=== PATIENT | female | born 1970 | race African-American/Black ===

== ENCOUNTER 2017-08-16 14:11 | Outpatient (CLI) | payer MEDICARE ==
--- NOTE | 2017-08-16 16:59 | RAD ---
UPPER GI: Date: 08/16/17 HISTORY: Bariatric surgery. Patient reports fluid in abdomen. COMPARISON: 02/22/13. CORRELATION: Abdomen MRI dated 04/30/17. Abdomen CT dated 04/29/17. EXPOSURE: 1.4 minutes. 1038.2 mGy*cm\S\2. FINDINGS: 1 VIEW ABDOMEN: Nonspecific bowel gas pattern. Surgical clips and suture chain are noted in the left and right epiga stric region. Patient was administered a small amount of thin barium. Barium opacifies a gastric remnant and empti es into the small bowel loops without delay. No leak or extravasation. Visualized thoracic esophagus have an overall normal course and caliber. Limited evaluation of the m ucosa. TECHNIQUE: A limited upper GI was performed due to the patient having previous bariatric surgery and stating th at she cannot ingest large volumes. Patient was placed in the upright position and thin barium was a dministered. Barium passed without difficulty. There were no immediate postprocedure complications. IMPRESSION: Limited upper GI. Contrast opacifies the gastric remnant. No evidence of leak or extravasation. POS: ALEXI
== END 2017-08-16 14:12 | disposition home or self-care (01) ==
LOC: RAD 14:11
DX: Z48.815 Encounter for surgical aftercare following surgery on the digestive system (principal); Z98.84 Bariatric surgery status
CPT/HCPCS: 36415; 74241; 80053; 84134; 85025

== ENCOUNTER 2017-09-05 17:03 | Emergency (ER) | payer MEDICARE ==
[~2017-09-05 17:03] MED LIST: ISOVUE-370 76%-LOCM 1 ML ONE; Iopamidol 370 76% 50 ML VIAL FS ONE
[2017-09-05 19:23] LABS: Hematocrit 47.3 % (36.0-47.0); Mean Platelet Volume 7.1 fL (7.4-10.4); Red Blood Cell (RBC) Count 6.44 mill/uL (4.20-5.40); White Blood Cell (WBC) Count 9.7 thou/uL (4.8-10.8)
[2017-09-05 19:40] LABS: Lactic Acid - Sepsis 3.7 mmol/L (0.5-2.2)
[2017-09-05 19:43] LABS: ALT (SGPT) 12 U/L (8-55); AST (SGOT) 19 U/L (5-34); Alkaline Phosphatase 83 U/L (40-150); Anion Gap 19 mmol/L (10-20); BUN (Urea Nitrogen) 10 mg/dL (7.0-18.7); Bilirubin, Total 0.6 mg/dL (0.2-1.2); Calc. Creatinine Clearance 0 mL/min (70-130); Calcium 10.2 mg/dL (7.8-10.44); Carbon Dioxide 24 mmol/L (22-29); Chloride 102 mmol/L (98-107); Estimated GFR-MDRD Greater than 90; Globulin 4.3 g/dL (2.4-3.5); Lipase 23 U/L (8-78); Magnesium 2.3 mg/dL (1.6-2.6); Protein, Total 8.7 g/dL (6.0-8.3)
[2017-09-05 19:44] LABS: #Basophils 0.1 thou/uL (0.0-0.2); #Lymphocytes 3.3 thou/uL (1.20-3.40); #Monocytes 0.6 thou/uL (0.11-0.59); #Neutrophils 5.7 thou/uL (1.40-6.50); %Basophils 1.4 % (0.0-1.0); %Eosinophils 0.1 % (0.0-10.0); %Lymphocytes 33.7 % (21.0-51.0); %Monocytes 6.3 % (0.0-10.0); Anisocytosis SLIGHT = 6-15 cells (100X) (0-5/hpf); Hypochromia SLIGHT = 6-15 cells (100X) (0-5/hpf)
[2017-09-05] MEDS ORDERED: Morphine 10 MG/ML VIAL ONE ×2 (19:44→21:45)
[2017-09-05] MEDS ORDERED: Promethazine HCl 25 MG/ML VIAL ONE ×2 (19:44→21:45)
[2017-09-05 20:31] LABS: Bilirubin Small (Negative); Blood, Urine Negative (Negative); Glucose, Urine (Dipstick) 250 mg/dL (Negative); Ketone, Urine 15 mg/dL (Negative); Nitrite Negative (Negative); Protein, Urine (Dipstick) 30 mg/dL (Neg-Trace)
[2017-09-05 20:33] LABS: Bacteria/HPF None Seen HPF (None Seen)
[2017-09-05 20:44] LABS: Hyaline Casts/LPF 0-3 HYALINE CAST LPF (0-3 Hyaline)
--- NOTE | 2017-09-05 22:15 | CT ---
CONTRAST ENHANCED CT IMAGES OF ABDOMEN AND PELVIS: 09/05/17 Comparison made to previous exam from 04/29/17. IV and oral contrast was given. Lung bases are unremarkable. No evidence of free intraperitoneal air seen. The liver is unremarkable except for what appears to b e a cyst in the dome of the right hepatic lobe. There is some intrahepatic biliary dilatation likely physiologic. The patient has had a previous cholecystectomy. The spleen is unremarkable except for a small splenic hilar likely cyst. Surgical changes seen in the stomach. The pancreas is unremarkabl e. Adrenal glands and kidneys are unremarkable. The SMA and celiac arteries are patent. Superior mesenteric vein is also patent. No evidence of periaortic lymphadenopathy seen. IMPRESSION: Unremarkable CT of abdomen and pelvis in a patient post cholecystectomy and gastric surgery. POS: ALEXI
[2017-09-06] MEDS ORDERED: Morphine 10 MG/ML VIAL ONE (00:46)
--- OUTSIDE RECORDS SUMMARY | 2017-09-06 09:04 | XMS | Clinical Summary ---
:1970 Author Organization [facility] Address [address] [place] [address] Phone Care Team Providers Name Role Phone Asked, No Primary Care Provider Unavailable Allergies Active Allergy Reactions Severity Noted Date Comments Doxycycline Hives High 05/29/2013 Latex Rash High 05/29/2013 Metoclopramide Hcl Palpitations High 05/29/2013 Sulfa (Sulfonamide Antibiotics) Hives High 05/29/2013 Ondansetron Hcl Influenza Virus Vaccines Rash Low 11/13/2013 Current Medications Prescription Sig. Disp. Refills Start Date End Date Status cyanocobalamin 1000 MCG Take 1,000 mcg by Active tablet mouth. ergocalciferol (VITAMIN Take 50,000 Units Active D2) 50,000 unit capsule by mouth. estrogens, conjugated, Take 0.625 mg by Active (PREMARIN) 0.625 MG tablet mouth. eszopiclone (LUNESTA) 1 MG Take 1 mg by Active tablet mouth. fentaNYL (DURAGESIC) 50 Place 1 patch on Active mcg/hr the skin. HYDROcodone-acetaminophen Take 1 tablet by 03/21/2017 Active (NORCO) 10-325 mg per mouth. tablet levothyroxine (SYNTHROID, Take 50 mcg by Active LEVOXYL) 50 mcg tablet mouth. multivitamin capsule Take 1 capsule by Active mouth. pantoprazole (PROTONIX) 40 Take 40 mg by Active MG EC tablet mouth. polyethylene glycol Take 17 g by Active (GLYCOLAX) 17 gram/dose mouth. powder propranolol LA (INDERAL Take 60 mg by Active LA) 60 MG 24 hr capsule mouth. TiZANidine (ZANAFLEX) 4 MG Take 4 mg by Active capsule mouth. dextroamphetamine-amphetam Take 20 mg by 07/31/2017 Active ine (ADDERALL) 20 mg mouth. tablet dicyclomine (BENTYL) 10 MG Take 10 mg by Active capsule mouth. hyoscyamine (LEVSIN) 0.125 Place 0.125 mg Active mg SL tablet under the tongue. sucralfate (CARAFATE) 1 Take 1 g by mouth. Active gram tablet predniSONE (DELTASONE) 50 Take 50 mg by 07/26/2017 Active mg tablet mouth. pantoprazole (PROTONIX) 40 Take 40 mg by 05/23/[address] for susp in mouth. packet SUMAtriptan (IMITREX) 50 Take 50 mg by Active MG tablet mouth. azithromycin (ZITHROMAX) 0 07/26/2017 Active 250 MG tablet HYDROcodone-acetaminophen TK 15 ML PO Q 3 TO 0 07/09/2017 Active (HYCET) 2.5-108.3 mg/5 mL 6 H solution hyoscyamine (LEVBID) 0.375 TK 1 T PO BID 0 07/19/2017 Active mg 12 hr tablet eszopiclone (LUNESTA) 3 mg 2 06/24/2017 Active tablet traMADol (ULTRAM) 50 mg 05/04/2017 Active tablet Active Problems Not on file Encounters Date Type Specialty Care Team Description 08/28/2017 Orders Only General Surgery Rodney Shin RN 08/01/2017 Office Visit General Surgery Peter Grace MD Left upper quadrant pain (Primary Dx);Anastomotic stenosis of gastrojejunostomy;Gastric bypass status for obesity 08/01/2017 Orders Only General Surgery Rodney Shin RN History of bariatric surgery (Primary Dx) from Last 3 Months Family History Medical History Relation Name Comments Diabetes Mother Heart disease Mother Relation Name Status Comments Mother Social History Tobacco Use Types Packs/Day Years Used Date Never Smoker Alcohol Use Drinks/Week oz/Week Comments No Sex Assigned at Date Recorded Not on file Last Filed Vital Signs Vital Sign Reading Time Taken Blood Pressure 170/77 08/01/2017 3:25 PM CDT Pulse 86 08/01/2017 3:25 PM CDT Temperature 36.8 C (98.2 F) 08/01/2017 3:25 PM CDT Respiratory Rate - - Oxygen Saturation 96% 08/01/2017 3:25 PM CDT Inhaled Oxygen Concentration - - Weight 81.6 kg (180 lb) 08/01/2017 3:25 PM CDT Height 162.6 cm (5' 4") 08/01/2017 3:25 PM CDT Body Mass Index 30.9 08/01/2017 3:25 PM CDT Plan of Treatment Health Maintenance Due Date Last Done Comments PAP SMEAR 1991 INFLUENZA VACCINE 06/11/2017 Results Not on filefrom Last 3 Months Insurance Payer Benefit Plan / Group Subscriber ID Type Phone Address MEDICARE MEDICARE PART A AND B [id number] Medicare [place], [place] BCBS BCBS CHOICE PPO/[employer]ER[employer] EMPL PPO [id number] PPO Home: [address] [phone] [place], [place] [phone]
--- OUTSIDE RECORDS SUMMARY | 2017-09-06 09:04 | XMS | Clinical Summary ---
:1970 Author Organization [facility] Address [address] [place] [address] Phone Care Team Providers Name Role Phone , Primary Care Provider Unavailable Allergies Active Allergy Reactions Severity Noted Date Comments Doxycycline Hives High 05/29/2013 Latex Rash High 05/29/2013 Metoclopramide Hcl Palpitations High 05/29/2013 Sulfa (Sulfonamide Antibiotics) Hives High 05/29/2013 Ondansetron Hcl (Pf) Anaphylaxis High 05/29/2013 Influenza Virus Vaccines Rash Low 11/13/2013 Current Medications Prescription Sig. Disp. Refills Start Date End Date Status estrogens, conjugated, Take 0.625 mg by Active (PREMARIN) 0.625 MG mouth daily. tablet TiZANidine (ZANAFLEX) Take 4 mg by mouth Active 4 MG capsule 4 (four) times daily . levothyroxine Take 50 mcg by Active (SYNTHROID, mouth every other LEVOTHROID) 50 MCG day. tablet multivitamin capsule Take 1 capsule by Active mouth daily. polyethylene glycol Take 17 g by mouth Active (GLYCOLAX) 17 daily as needed . gram/dose powder eszopiclone (LUNESTA) Take 1 mg by mouth Active 1 MG tablet every night as needed. Take immediately before bedtime. morphine 10 mg/5 mL Take by mouth Active solution every 8 (eight) hours . pantoprazole Take 40 mg by Active (PROTONIX) 40 MG mouth daily. tablet cyanocobalamin Take 1,000 mcg by Active (VITAMIN B-12) 1000 mouth daily . MCG tablet ergocalciferol Take 50,000 Units Active (VITAMIN D2) 50,000 by mouth once a unit capsule week. propranolol (INDERAL Take 60 mg by Active LA) 60 MG 24 hr mouth daily. capsule promethazine Take 25 mg by Active (PHENERGAN) 25 MG mouth every 6 tablet (six) hours as needed for Nausea. fentaNYL (DURAGESIC) Place 1 patch onto Active 50 mcg/hr patch the skin every third day. HYDROcodone-acetaminop Take 1 tablet by 30 tablet 0 03/21/2017 Active hen (NORCO 10-325) mouth every 6 10-325 mg per tablet (six) hours as needed for Pain for up to 30 doses. 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 DX Data Management Engineer Social History Tobacco Use Types Packs/Day Years Used Date Never Smoker Smokeless Tobacco: Never Used Alcohol Use Drinks/Week oz/Week Comments No 0.0 Sex Assigned at Date Recorded Not on file Last Filed Vital Signs Vital Sign Reading Time Taken Blood Pressure 93/55 03/21/2017 4:00 PM CDT Pulse 83 03/21/2017 4:00 PM CDT Temperature 35.8 C (96.4 F) 03/21/2017 4:00 PM CDT Respiratory Rate 18 03/21/2017 4:00 PM CDT Oxygen Saturation 100% 03/21/2017 4:00 PM CDT Inhaled Oxygen Concentration - - Weight 75.8 kg (167 lb) 03/20/2017 8:54 PM CDT Height 162.6 cm (5' 4") 03/20/2017 8:54 PM CDT Body Mass Index 28.67 03/20/2017 8:54 PM CDT Plan of Treatment Not on file Implants Implanted Type Area Instrumentation And Controls Technician Device Expiration Model / Identifier Date Serial / Lot Stent,Esophageal Wallflex Partially Covered Permalume [id number] - [id number] Stents-Pe [employer] 07/16/2015 [id number] / Implanted:Qty: 1 on 10/15/2014 by Flor Dickinson MD ripheral / [id number] Explanted Type Area Instrumentation And Controls Technician Device Expiration Date Model / Identifier Serial / Lot Stent,Esophageal Wallflex Fully Covered [id number] - [id number] Stents-Pe [employer] [id number] / Implanted:Qty: 1 on 08/08/2013 by Maicol Bella MD ripheral / Explanted:Qty: 1 on 11/26/2014 by Flor Dickinson MD Results Not on filefrom Last 3 Months
== END 2017-09-06 00:54 | disposition home or self-care (01) ==
LOC: ERS 17:03
DX: R11.2 Nausea with vomiting, unspecified (principal); R10.31 Right lower quadrant pain; M32.9 Systemic lupus erythematosus, unspecified; E11.9 Type 2 diabetes mellitus without complications; E78.5 Hyperlipidemia, unspecified; I10 Essential (primary) hypertension; Z79.899 Other long term (current) drug therapy
CPT/HCPCS: 36415; 74177; 80053; 81003; 81015; 83605; 83690; 83735; 84702; 85025; 93005; 96361; 96372; 96374; 96375; 96376; J2270; J2550

== ENCOUNTER 2019-06-03 14:38 | Emergency (ER) | payer MEDICARE, BC ==
[2019-06-03] MEDS ORDERED: Metoclopramide HCl 10 MG/2 ML VIAL ONE (15:10)
[2019-06-03] MEDS ORDERED: Morphine 2 MG/ML SYRINGE ONE ×2 (15:10→17:51)
--- NOTE | 2019-06-03 15:12 | RAD ---
Portable frontal chest radiograph: 06/03/2019 COMPARISON: 06/02/2011 HISTORY: Lightheaded, dizzy, chest pain FINDINGS: Lungs are clear. Heart and mediastinal contours appear within normal limits. There is a pos tsurgical anchor overlying the left humeral head IMPRESSION: No acute findings.
[2019-06-03 15:19] LABS: #Basophils 0.1 thou/uL (0.0-0.2); #Eosinphils 0.1 thou/uL (0.0-0.7); #Lymphocytes 2.8 thou/uL (1.20-3.40); #Monocytes 0.6 thou/uL (0.11-0.59); #Neutrophils 3.3 thou/uL (1.40-6.50); %Basophils 1.2 % (0.0-1.0); %Eosinophils 1.2 % (0.0-10.0); %Lymphocytes 40.5 % (21.0-51.0); %Monocytes 8.8 % (0.0-10.0); %Neutrophils 48.4 % (42.0-75.0); Mean Corpuscular HGB CONC 32.6 g/dL (32.0-36.0); Mean Corpuscular Hemoglobin 24.2 pg (27.0-31.0); Mean Corpuscular Volume 74.1 fL (78.0-98.0); Mean Platelet Volume 9.7 fL (7.4-10.4); Platelet Count 244 thou/uL (130-400); RBC Distribution Width 12.2 % (11.5-14.5); Red Blood Cell (RBC) Count 5.38 mill/uL (4.20-5.40); White Blood Cell (WBC) Count 6.9 thou/uL (4.8-10.8)
[2019-06-03 15:27] LABS: MDiff Complete? YES; Microcytosis SLIGHT = 6-15 cells (100X) (0-5/hpf); Platelet Morphology Comment Appears Adequate; Polychromasia SLIGHT = 2-3 cells (100X) (0-2/hpf)
[2019-06-03 15:34] LABS: ALT (SGPT) 34 U/L (8-55); AST (SGOT) 116 U/L (5-34); Albumin 4.4 g/dL (3.5-5.0); Alkaline Phosphatase 120 U/L (40-150); Anion Gap 15 mmol/L (10-20); BUN (Urea Nitrogen) 9 mg/dL (7.0-18.7); Bilirubin, Total 0.4 mg/dL (0.2-1.2); Calc. Creatinine Clearance 0 mL/min (70-130); Calcium 9.7 mg/dL (7.8-10.44); Carbon Dioxide 27 mmol/L (22-29); Chloride 104 mmol/L (98-107); Estimated GFR-MDRD 86; Globulin 3.2 g/dL (2.4-3.5); Glucose 107 mg/dL (70-105); Potassium 4.5 mmol/L (3.5-5.1); Protein, Total 7.6 g/dL (6.0-8.3); Sodium 141 mmol/L (136-145)
--- NOTE | 2019-06-03 18:25 | CT ---
CT ABDOMEN AND PELVIS WITH CONTRAST: 06/03/19 INDICATIONS: Abdominal pain. Technologist states lateral left hip pain. COMPARISON: CT abdomen and pelvis 09/05/17. Lung bases clear. Dilatation of intra and extrahepatic biliary ducts is seen but this is a stable finding from the prio r study. Cystic lesion in the superior liver under the dome of the diaphragm is stable. Postoperative changes involving the stomach again noted. There is evidence of gastric bypass. Mild dilatation of the pancreatic duct; however, this is a stable finding from 2017. Adrenal glands and kidneys unremarkable. Small bowel loops normal caliber. Colon unremarkable. Images through the pelvis shows a hysterectomy. Urinary bladder unremarkable. No adenopathy identifi ed. Osseous structures unremarkable. The left hip appears unremarkable. IMPRESSION: Post gastric bypass changes again noted. There is intra and extrahepatic biliary duct dilatation and dilatation of pancreatic duct. These findings are stable from the CT of 2017. POS: OFF
--- NOTE | 2019-06-03 18:29 | CT ---
CT ANGIOGRAM OF THE CHEST WITH 3D RENDERIN06/03/19 HISTORY: Chest pain, history of prior cholecystectomy and gastric bypass. FINDINGS: No CT evidence for acute pulmonary embolism. Postop changes in the stomach consistent with gastric by pass. Dilatation of the common duct and intrahepatic ducts is visualized probably related to prior ch olecystectomy. 1.8 cm liver cyst in the dome of the liver. Mild thickening of the distal esophagus, n onspecific. No pleural effusion or pericardial effusion. No mediastinal mass or adenopathy. No eviden ce for aortic aneurysm or dissection. IMPRESSION: No convincing CT evidence for acute pulmonary embolism. Postop changes in the stomach evidence for pr ior gastric bypass with some nonspecific thickening of the distal esophagus. Small cyst in the dome of the right lobe of the liver. Dilatation of the common duct and intrahepatic ducts probably related to status post cholecystectomy. POS: RRE
== END 2019-06-03 18:27 | disposition home or self-care (01) ==
LOC: ERS 14:38
DX: M79.81 Nontraumatic hematoma of soft tissue (principal); R07.89 Other chest pain; R42 Dizziness and giddiness; I48.91 Unspecified atrial fibrillation; I10 Essential (primary) hypertension
CPT/HCPCS: 36415; 71045; 71275; 74177; 80053; 84484; 85025; 93005; 96374; 96375; J2270; J2765

== ENCOUNTER 2020-01-25 07:18 | Outpatient (CLI) | payer MEDICARE, BC, MEDICAID ==
[2020-01-25 17:00] LABS: Hemoglobin 12.4 g/dL (12.0-16.0); Mean Corpuscular HGB CONC 32.5 g/dL (32.0-36.0); Mean Corpuscular Hemoglobin 24.7 pg (27.0-31.0); Mean Corpuscular Volume 76.2 fL (78.0-98.0); Platelet Count 225 thou/uL (130-400); RBC Distribution Width 12.1 % (11.5-14.5); Red Blood Cell (RBC) Count 5.04 mill/uL (4.20-5.40)
[2020-01-25 17:17] LABS: Anion Gap 11 mmol/L (10-20); BUN (Urea Nitrogen) 10 mg/dL (7.0-18.7); Calc. Creatinine Clearance 0 mL/min (70-130); Calcium 9.7 mg/dL (7.8-10.44); Carbon Dioxide 28 mmol/L (22-29); Chloride 105 mmol/L (98-107); Estimated GFR-MDRD 88; Glucose 107 mg/dL (70-105); Sodium 140 mmol/L (136-145)
== END 2020-01-25 07:19 | disposition home or self-care (01) ==
LOC: LABBT 07:18
PROVIDERS: ATTEND Dentist Oral and Maxillofacial Surgery
DX: Z01.818 Encounter for other preprocedural examination (principal); L02.91 Cutaneous abscess, unspecified; R52 Pain, unspecified
CPT/HCPCS: 80048; 85027; 93005; 93010

== ENCOUNTER 2020-02-01 06:07 | Day surgery (SDC) | payer MEDICARE, BC, MEDICAID ==
[2020-01-25 15:45] VITALS: BMI 34.3
[2020-02-01] MEDS ORDERED: Fentanyl 100 MCG/2 ML VIAL ONE ×2 (06:33→09:54)
[2020-02-01] MEDS ORDERED: Chlorhexidine Gluconate 15 ML UDCUP SSP ONE (06:44)
[2020-02-01] MEDS ORDERED: Lidocaine 1% w/Epinephrine 1:100K 20 ML VIAL ONE (06:44)
[2020-02-01] MEDS ORDERED: Dexamethasone 4 mg/ml Vial ONE (06:55)
[2020-02-01] MEDS ORDERED: Clindamycin/D5W 900 mg/50 ml Premix Bag ONE (06:55)
[2020-02-01] MEDS ORDERED: Scopolamine 1.5 mg/72 hour Patch ONE (07:11)
[2020-02-01] MEDS ORDERED: AFRIN NASAL MIST 15 ML BOT ONE (07:27)
[2020-02-01] MEDS ORDERED: SUGAMMADEX SODIUM 200 MG/2 ML VIAL ONE (08:13)
[2020-02-01] MEDS ORDERED: SUGAMMADEX SODIUM 500 MG/5 ML VIAL ONE (08:13)
[2020-02-01] MEDS ORDERED: Midazolam HCl 2 mg/2 ml Vial ONE (08:13)
[2020-02-01] MEDS ORDERED: Promethazine HCl 25 MG/ML VIAL ONE (09:42)
[2020-02-01] MEDS ORDERED: PROPOFOL 200 MG/20 ML VIAL ONE (09:54)
[2020-02-01] MEDS ORDERED: PHENYLEPHRINE-NS 100 MCG/ML 10 ML SYRINGE ONE (09:54)
[2020-02-01] MEDS ORDERED: Glycopyrrolate 0.2 MG/ML 5 ML SYRINGE ONE (09:54)
[2020-02-01] MEDS ORDERED: Ketorolac Tromethamine 30 MG/ML VIAL ONE (09:54)
[2020-02-01] MEDS ORDERED: Succinylcholine Chloride 20 MG/ML 10 ml SYRINGE FS ONE (09:54)
[2020-02-01] MEDS ORDERED: Rocuronium Bromide 10 MG/ML (10ML VIAL) ONE (09:54)
[2020-02-01] MEDS ORDERED: Lidocaine 1% PF 5 ML VIAL ONE (09:54)
[2020-02-01] MEDS ORDERED: Hydrocodone-Acetamin 15 ML UDCUP ONE (11:00)
--- NOTE | 2020-02-01 14:18 | OP ---
DATE OF PROCEDURE: 02/01/2020 PREOPERATIVE DIAGNOSES: Decayed teeth, dental pain, and abscess. POSTOPERATIVE DIAGNOSES: Decayed teeth, dental pain, and abscess. PROCEDURES PERFORMED: Surgical removal of teeth 7, 13, 14, 20, 21, 22, 27, 28, 29, 30, 31 and alveoloplasty of lower right and lower left quadrants. tOOTH 31 WAS ADDED TO PLAN IT WAS NOTED TO BE GROSSLY DECAYED AND NON RESTORABLE COMPLICATIONS: None. SPECIMENS: None. DRAINS: None. ANESTHESIA: General endotracheal anesthesia through nasal tube. BRIEF PATIENT HISTORY AND PROCEDURE IN DETAIL: This is a 49-year-old female with complex past medical history. She was bridged with Lovenox and held her Eliquis prior to surgery per her intermediate frame tender, Dr. Murillo. The patient does have history of multiple blood clots. The patient was prepped and draped in sterile fashion. Throat pack was placed utilizing a [employer] sponge. Local anesthetic was infiltrated in bilateral inferior alveolar nerve block with 1% lidocaine 1:100,000 epinephrine. Tooth #7 forceps was used to attempted extraction of the tooth; however, crown fractured off. Full-thickness mucoperiosteal flap was made with a periosteal elevator, buccal ostectomy with drill, elevator removal of the root. Also please note, a bite block was used during the entire procedure. ALL_ teeth were attempted extraction; however, crowns broke off. Full-thickness mucoperiosteal flap, buccal ostectomy drill, elevator, forceps, curette, normal saline, and Surgicel. Please note, Surgicel was placed in all sockets. Primary closure of 7, 13, and 14 were done with 4-0 chromic. Procedure was then taken to the mandible. Full-thickness mucoperiosteal flap to the buccal. All crowns fractured, elevator removal of teeth after some minor buccal ostectomy. Sockets curetted, packed with Surgicel, after irrigation with normal saline. Primary closure with 4-0 chromic. Throat pack was removed at termination of the procedure. The patient was hemostatic. The patient has pain medicine at home. She has fentanyl, Ultram, and Grant per her primary care doctor. The patient is to follow up in my clinic in one week __FROM TODAY 30 minutes at a time for the next couple hours as needed for oozing. We will monitor the patient in postop recovery unit prior to discharge. Job ID: [id number] MTDD
== END 2020-02-01 12:14 | disposition home or self-care (01) ==
LOC: SDC 06:07
PROVIDERS: ATTEND Dentist Oral and Maxillofacial Surgery
PROC: 0CDXXZ1 Extraction of Lower Tooth, Multiple, External Approach (ICD-10-PCS; principal; 2020-02-01)
PROC: 0CDWXZ1 Extraction of Upper Tooth, Multiple, External Approach (ICD-10-PCS; 2020-02-01)
PROC: 0NQV0ZZ Repair Left Mandible, Open Approach (ICD-10-PCS; 2020-02-01)
PROC: 0NQT0ZZ Repair Right Mandible, Open Approach (ICD-10-PCS; 2020-02-01)
DX: K02.9 Dental caries, unspecified (principal); K04.7 Periapical abscess without sinus; G89.29 Other chronic pain; K21.9 Gastro-esophageal reflux disease without esophagitis; I48.91 Unspecified atrial fibrillation; Z79.01 Long term (current) use of anticoagulants; Z79.899 Other long term (current) drug therapy; Z88.1 Allergy status to other antibiotic agents; Z88.2 Allergy status to sulfonamides; Z88.7 Allergy status to serum and vaccine; Z88.8 Allergy status to other drugs, medicaments and biological substances; Z91.040 Latex allergy status; Z98.84 Bariatric surgery status
CPT/HCPCS: J1100; J1885; J2001; J2250; J2550; J2704; J3010; J3490

== ENCOUNTER 2020-04-18 10:32 | Outpatient (CLI) | payer BC, MEDICARE, MEDICAID, OTHER ==
[2020-04-18 18:12] LABS: #Basophils 0.1 thou/uL (0.0-0.2); #Eosinphils 0.1 thou/uL (0.0-0.7); #Lymphocytes 3.1 thou/uL (1.20-3.40); #Monocytes 0.6 thou/uL (0.11-0.59); #Neutrophils 4.7 thou/uL (1.40-6.50); %Basophils 1.3 % (0.0-1.0); %Eosinophils 1.2 % (0.0-10.0); %Lymphocytes 36.2 % (21.0-51.0); %Monocytes 6.7 % (0.0-10.0); %Neutrophils 54.6 % (42.0-75.0); Hemoglobin 12.9 g/dL (12.0-16.0); Mean Corpuscular HGB CONC 32.9 g/dL (32.0-36.0); Mean Corpuscular Volume 72.8 fL (78.0-98.0); Mean Platelet Volume 11.2 fL (7.4-10.4); Platelet Count 240 thou/uL (130-400); RBC Distribution Width 13.1 % (11.5-14.5); Red Blood Cell (RBC) Count 5.37 mill/uL (4.20-5.40); White Blood Cell (WBC) Count 8.7 thou/uL (4.8-10.8)
[2020-04-18 18:30] LABS: Hypochromia SLIGHT = 6-15 cells (100X) (0-5/hpf); Large Platelets SLIGHT; MDiff Complete? YES; Microcytosis SLIGHT = 6-15 cells (100X) (0-5/hpf); Platelet Morphology Comment Appears Adequate; Polychromasia SLIGHT = 2-3 cells (100X) (0-2/hpf); Target Cells SLIGHT = 2-5 cells (100X) (0-1/hpf)
[2020-04-18 18:37] LABS: ALT (SGPT) 14 U/L (8-55); AST (SGOT) 18 U/L (5-34); Albumin 4.3 g/dL (3.5-5.0); Alkaline Phosphatase 110 U/L (40-110); Anion Gap 14 mmol/L (10-20); BUN (Urea Nitrogen) 10 mg/dL (7.0-18.7); Bilirubin, Total 0.3 mg/dL (0.2-1.2); Calc. Creatinine Clearance 0 mL/min (70-130); Calcium 9.7 mg/dL (7.8-10.44); Carbon Dioxide 30 mmol/L (22-29); Chloride 102 mmol/L (98-107); Estimated GFR-MDRD 89; Globulin 3.5 g/dL (2.4-3.5); Glucose 106 mg/dL (70-105); Potassium 4.9 mmol/L (3.5-5.1); Protein, Total 7.8 g/dL (6.0-8.3); Sodium 141 mmol/L (136-145)
[2020-04-19 13:58] LABS: SARS-CoV-2 MS2 Positive; SARS-CoV-2 N Gene Negative; SARS-CoV-2 S Gene Negative; SARS-CoV-2 orf1ab Negative
== END 2020-04-18 10:33 | disposition home or self-care (01) ==
LOC: LABBT 10:32
PROVIDERS: ATTEND Internal Medicine Cardiovascular Disease
DX: Z01.812 Encounter for preprocedural laboratory examination (principal); Z11.59 Encounter for screening for other viral diseases
CPT/HCPCS: 80053; 85025; 87635; U0003

== ENCOUNTER 2020-04-20 10:26 | Observation (INO) | payer BC, MEDICARE, MEDICAID ==
[~2020-04-20 10:26] MED LIST changes: -ISOVUE-370 76%-LOCM 1 ML ONE; +Iopamidol 370 76% 100 ML VIAL ONE; -Iopamidol 370 76% 50 ML VIAL FS ONE
[2020-04-20] MEDS ORDERED: Heparin 10,000 UNITS/1 ML VIAL ONE (11:32)
[2020-04-20] MEDS ORDERED: Verapamil 5 MG/2 ML VIAL ONE (11:32)
[2020-04-20] MEDS ORDERED: Nitroglycerin 100MG/250ML BOT 250 ML ONE (11:32)
[2020-04-20] MEDS ORDERED: Fentanyl 100 MCG/2 ML VIAL ONE (12:09)
[2020-04-20] MEDS ORDERED: Midazolam HCl 2 mg/2 ml Vial ONE (12:09)
[2020-04-20] MEDS ORDERED: Nitroglycerin 4.9 GM Bottle ONE (12:40)
[2020-04-20] MEDS ORDERED: Acetaminophen/Codeine 30-300mg Tablet ONE ×2 (13:19→17:33)
[2020-04-20] MEDS ORDERED: Iopamidol-370 76% 500 ML 1 ML ONE (14:20)
[2020-04-20] MEDS ORDERED: Loratadine 10 MG TAB PO PRN (14:27)
[2020-04-20] MEDS ORDERED: Naproxen 500 MG TAB PO PRN (14:28)
[2020-04-20] MEDS ORDERED: hydrALAZINE 20 MG/ML VIAL ONE (14:28)
[2020-04-20] MEDS ORDERED: Sucralfate 1 GM/10 ML UDCUP PO PRN (14:33)
[2020-04-20] MEDS ORDERED: diphenhydrAMINE 25 MG CAP PO PRN (15:03)
[2020-04-20] MEDS ORDERED: HYDROcodone/Acetaminophen 10/325 mg Tablet PO PRN (15:07)
[2020-04-20] MEDS ORDERED: cloNIDine 0.1 MG TAB ONE (15:09)
[2020-04-20] MEDS ORDERED: Lorazepam 2 MG/ML VIAL ONE (15:42)
--- NOTE | 2020-04-20 16:47 | CT ---
CT arteriogram chest with IV contrast and 3-D imaging HISTORY: Chest pain. Dyspnea. COMPARISON: 06/03/2019. FINDINGS: There is good contrast opacification of the pulmonary arteries and thoracic aorta with norm al branching of the great vessels at the aortic arch. Motion artifact limits evaluation of the peripheral arteries of the lower lobes. No pleural fluid, lobar consolidation, pneumothorax, or mediastinal adenopathy evident. Postoperative changes of the stomach and the gallbladder fossa again demonstrated. Lobular cyst in th e dome of the liver is stable. IMPRESSION : No acute abnormalities are demonstrated.
[2020-04-20] MEDS: Gabapentin 300 MG CAP PO SCH ×2 (19:16→19:39)
[2020-04-20] MEDS: tiZANidine HCl 4 MG TAB PO SCH ×3 (19:17→21:43)
[2020-04-20] MEDS: Metoprolol Tartrate 50 MG TAB PO SCH (19:39)
[2020-04-20] MEDS: traMADol HCl 50 MG TAB PO PRN (19:40)
[2020-04-20] MEDS ORDERED: Zolpidem Tartrate 5 MG TAB PO SCH (21:00)
[2020-04-21 00:12] VITALS: BMI 34.2
[2020-04-21] MEDS ORDERED: Levothyroxine Sodium 25 MCG TAB PO SCH (06:00)
[2020-04-21] MEDS: Gabapentin 300 MG CAP PO SCH (08:19)
[2020-04-21] MEDS: traMADol HCl 50 MG TAB PO PRN (08:19)
[2020-04-21] MEDS: tiZANidine HCl 4 MG TAB PO SCH (08:19)
[2020-04-21] MEDS: Metoprolol Tartrate 50 MG TAB PO SCH (08:19)
[2020-04-21] MEDS ORDERED: Multivitamin W/ Minerals 1 TAB PO SCH (09:00)
[2020-04-21] MEDS ORDERED: Aspirin 81 mg Enteric Coated Tablet PO SCH (09:00)
[2020-04-21] MEDS ORDERED: Apixaban 5 MG TAB PO SCH (09:00)
[2020-04-21] MEDS ORDERED: Sodium Chloride 0.9% 500 ML IV SCH (11:45)
[2020-04-21 12:04] VITALS: TEMP 98
[2020-04-21 13:41] VITALS: BP 105/65
--- NOTE | 2020-04-21 14:00 | EKG ---
Test Reason : TIMED Blood Pressure : / mmHG Vent. Rate : 090 BPM Atrial Rate : 090 BPM P-R Int : 152 ms QRS Dur : 078 ms QT Int : 398 ms P-R-T Axes : 055 032 060 degrees QTc Int : 486 ms Normal sinus rhythm Prolonged QT Abnormal ECG Confirmed by SANKET CHI ([id number]) on 04/21/2020 2:00:00 PM Referred By: TRACY Confirmed By:SANKET CHI
[2020-05-04] MEDS ORDERED: Cyanocobalamin 1000 MCG/ML VIAL IM SCH (09:00)
== END 2020-04-21 14:15 | disposition home or self-care (01) ==
LOC: CCL 10:26 → 2NO 17:19
PROVIDERS: ADMIT Internal Medicine Cardiovascular Disease; ATTEND Internal Medicine Cardiovascular Disease
PROC: 4A023N8 Measurement of Cardiac Sampling and Pressure, Bilateral, Percutaneous Approach (ICD-10-PCS; principal; 2020-04-21)
PROC: B2011ZZ Plain Radiography of Multiple Coronary Arteries using Low Osmolar Contrast (ICD-10-PCS; 2020-04-21)
DX: R07.9 Chest pain, unspecified (principal); E11.9 Type 2 diabetes mellitus without complications; I82.401 Acute embolism and thrombosis of unspecified deep veins of right lower extremity; L93.0 Discoid lupus erythematosus; I10 Essential (primary) hypertension; E78.5 Hyperlipidemia, unspecified; K86.1 Other chronic pancreatitis; E03.9 Hypothyroidism, unspecified; Z79.01 Long term (current) use of anticoagulants; Z79.899 Other long term (current) drug therapy; Z88.2 Allergy status to sulfonamides; Z88.1 Allergy status to other antibiotic agents; Z88.7 Allergy status to serum and vaccine; Z88.8 Allergy status to other drugs, medicaments and biological substances; Z91.040 Latex allergy status
CPT/HCPCS: 36416; 71275; 76942; 93005; 93010; 93454; 99152; 99153; G0378; J0360; J1644; J2060; J2250; J3010; Q0163; Q9967

== ENCOUNTER 2020-05-25 13:19 | Outpatient (CLI) | payer BC, MEDICARE, MEDICAID, OTHER ==
[2020-05-26 13:28] LABS: SARS-CoV-2 MS2 Positive; SARS-CoV-2 N Gene Negative; SARS-CoV-2 S Gene Negative; SARS-CoV-2 orf1ab Negative
== END 2020-05-25 13:20 | disposition home or self-care (01) ==
LOC: LABSCS 13:19
PROVIDERS: ATTEND Physical Medicine & Rehabilitation
DX: Z01.812 Encounter for preprocedural laboratory examination (principal); Z11.59 Encounter for screening for other viral diseases; M54.5 Low back pain
CPT/HCPCS: 87635; U0003

== ENCOUNTER → 2020-06-16 | Outpatient (CLI) | payer BC, MEDICARE, MEDICAID, OTHER ==
[2020-06-17 14:23] LABS: SARS-CoV-2 MS2 Positive; SARS-CoV-2 N Gene Negative; SARS-CoV-2 S Gene Negative; SARS-CoV-2 by NAA Not Detected (NotDetected); SARS-CoV-2 orf1ab Negative
== END ==
LOC: LABBT 08:00
PROVIDERS: ATTEND Physical Medicine & Rehabilitation
DX: Z20.828 Contact with and (suspected) exposure to other viral communicable diseases (principal)
CPT/HCPCS: 87635; U0003

== ENCOUNTER 2020-08-07 01:55 | Emergency (ER) | payer BC, MEDICARE, MEDICAID ==
[2020-08-07] MEDS ORDERED: Metoclopramide HCl 10 MG/2 ML VIAL ONE (02:29)
[2020-08-07] MEDS ORDERED: Morphine 4 MG/ML VIAL ONE (02:29)
[2020-08-07] MEDS ORDERED: diphenhydrAMINE 50 MG/ML VIAL ONE ×2 (02:31→02:36)
[2020-08-07 02:57] LABS: Hemoglobin 12.4 g/dL (12.0-16.0); Mean Corpuscular HGB CONC 32.4 g/dL (32.0-36.0); Mean Corpuscular Hemoglobin 23.3 pg (27.0-31.0); Mean Platelet Volume 11.1 fL (7.4-10.4); Platelet Count 247 thou/uL (130-400); RBC Distribution Width 15.2 % (11.5-14.5); Red Blood Cell (RBC) Count 5.32 mill/uL (4.20-5.40); White Blood Cell (WBC) Count 9.4 thou/uL (4.8-10.8)
[2020-08-07 03:06] LABS: ALT (SGPT) 18 U/L (8-55); AST (SGOT) 17 U/L (5-34); Albumin 4.3 g/dL (3.5-5.0); Alkaline Phosphatase 100 U/L (40-110); Anion Gap 14 mmol/L (10-20); BUN (Urea Nitrogen) 9 mg/dL (7.0-18.7); Bilirubin, Total 0.4 mg/dL (0.2-1.2); Calc. Creatinine Clearance 0 mL/min (70-130); Calcium 9.5 mg/dL (7.8-10.44); Carbon Dioxide 26 mmol/L (22-29); Chloride 101 mmol/L (98-107); Estimated GFR-MDRD Greater than 90; Globulin 3.6 g/dL (2.4-3.5); Glucose 128 mg/dL (70-105); Lipase 24 U/L (8-78); Protein, Total 7.9 g/dL (6.0-8.3); Sodium 137 mmol/L (136-145)
[2020-08-07 03:17] LABS: #Basophils 0.1 thou/uL (0.0-0.2); #Lymphocytes 2.3 thou/uL (1.20-3.40); #Monocytes 0.5 thou/uL (0.11-0.59); #Neutrophils 6.5 thou/uL (1.40-6.50); %Basophils 0.7 % (0.0-1.0); %Eosinophils 0.4 % (0.0-10.0); %Lymphocytes 24.8 % (21.0-51.0); %Neutrophils 69.1 % (42.0-75.0); RBC Morphology Normal
[2020-08-07 04:07] LABS: Bacteria/HPF None Seen HPF (None Seen); Bilirubin Negative (Negative); Blood, Urine Negative (Negative); Clarity Clear (Clear); Glucose, Urine (Dipstick) Normal (Negative); Ketone, Urine Negative (Negative); Leukocyte 250 Leu/uL (Negative); Nitrite Negative (Negative); Protein, Urine (Dipstick) Negative (Neg-Trace); RBC/HPF 0-3 HPF (0-3); Squamous Epithelial 0-3 HPF (0-3); Urobilinogen Normal mg/dL (Less than 2)
[2020-08-07 04:10] LABS: Specific Gravity, Urine 1.047 (1.002-1.036)
--- NOTE | 2020-08-07 08:08 | CT ---
PRELIMINARY REPORT/[facility]/AFTER HOURS PROCEDURE CT ABDOMEN AND PELVIS WITH INTRAVENOUS CONTRAST: CLINICAL HISTORY: Reports abdominal pain, decreased appetite and nausea x2 weeks. TECHNIQUE: Axial computed tomography images of the abdomen and pelvis with intravenous contrast. CONTRAST: With Isovue 370 100 mL. COMPARISON: None provided. FINDINGS: LUNG BASES: Trace bilateral pleural effusions with associated passive atelectasis. LIVER: There is a circumscribed nonenhancing hypodense lesion at the right hepatic dome that measures 1.8 x 2.4 x 2.2 cm, likely representing a hepatic cyst. GALLBLADDER AND BILE DUCTS: The gallbladder surgically absent with intrahepatic and extra hepatic harvey iary ductal dilatation with the common bile duct measuring approximately 1.1 cm in diameter. No defi nitive intraluminal filling defects are appreciated. PANCREAS: Mild prominence of the pancreatic duct. No definitive pancreatic lesion is present. SPLEEN: Unremarkable. ADRENAL GLANDS: Unremarkable. KIDNEYS, URETERS, AND BLADDER: Unremarkable. No hydronephrosis or nephrolithiasis. No ureteral or corey dder calculi. STOMACH AND BOWEL: Status post antecolic gastric Anil-en-Y with the gastrojejunal and jejunojejunal a nastomoses unremarkable. However, the wall of the excluded stomach is thickened with submucosal kalyani a and mucosal hyperenhancement. APPENDIX: Not definitively visualized, however, no additional findings to suggest appendicitis. PERITONEUM: No free fluid. No free air. LYMPH NODES: No lymphadenopathy. REPRODUCTIVE: The uterus is surgically absent. VASCULATURE: No aortic aneurysm. BONES: No fracture or suspicious osseous abnormality. ABDOMINAL WALL AND SOFT TISSUES: Injection granulomata are appreciated within the soft tissues of the anterior abdominal wall. IMPRESSION: 1. Gastric wall thickening, submucosal edema, and mucosal hyperenhancement of the excluded stomach s tatus post antecolic gastric Anil-en-Y. Differential considerations include gastritis versus ulcerative disease. 2. Status post cholecystectomy with both intrahepatic and extra hepatic biliary ductal dilatation wh ich are somewhat out of proportion. No definitive intraluminal filling defects are identified. Chol angitis may have a similar appearance, albeit less likely. Consider nonemergent MR imaging to evalua te for possible stricture or pancreatic lesion given the presence of mild pancreatic ductal prominenc e. 3. Additional findings as described above. ELECTRONICALLY SIGNED BY: Biju Patrick MD Aug 07, 2020 3:33:51 AM CDT This report is intended for review by the ordering physician only, in accordance of law. If you recei ve this report in error, please call [facility] at [phone]. FINAL REPORT EMERGENT AFTER HOURS CT ABDOMEN AND PELVIS WITH CONTRAST: COMPARISON: 06/03/2019 09/05/2017 FINDINGS/IMPRESSION: I agree with the findings given in the preliminary report per the [facility] physician; however , these findings are stable compared to the examination from 2019 and secondary to postoperative Anil -en-Y bypass. There is stable enlargement of the biliary tree, which may be a reservoir from prior ch olecystectomy. No definite acute process is identified. CODE QA POS: EAA
[2020-08-07] MEDS ORDERED: Iopamidol-370 76% 500 ML 1 ML ONE (16:15)
== END 2020-08-07 04:38 | disposition home or self-care (01) ==
LOC: ERS 01:55
DX: K29.70 Gastritis, unspecified, without bleeding (principal); I48.91 Unspecified atrial fibrillation; M32.9 Systemic lupus erythematosus, unspecified; I10 Essential (primary) hypertension; E11.9 Type 2 diabetes mellitus without complications; F41.9 Anxiety disorder, unspecified; F32.9 Major depressive disorder, single episode, unspecified
CPT/HCPCS: 74177; 80053; 81003; 81015; 83690; 85025; 96365; 96366; 96375; J1200; J2270; J2765; Q9967

== ENCOUNTER 2020-08-10 12:58 | Inpatient (IN) | payer BC, MEDICARE, MEDICAID ==
[2020-08-10 15:11] VITALS: BMI 35.2
[2020-08-10] MEDS ORDERED: hydrALAZINE 20 MG/ML VIAL SLOW IVP PRN (15:25)
[2020-08-10] MEDS ORDERED: Labetalol HCl 100 MG/20 ML VIAL SLOW IVP PRN (15:25)
[2020-08-10] MEDS ORDERED: Morphine 4 MG/ML VIAL ONE (15:29)
[2020-08-10] MEDS ORDERED: Dextrose 5 % And 0.9 % NaCl 1,000 ML IV SCH (15:30)
[2020-08-10] MEDS: Morphine 4 MG/ML VIAL SLOW IVP PRN ×2 (15:38→23:51)
--- NOTE | 2020-08-10 19:56 | HP ---
PRIMARY CARE PHYSICIAN: Dr. Charles. CHIEF COMPLAINT: Abdominal pain and "I can't keep anything down." HISTORY OF PRESENT ILLNESS: Ms. Potter is a pleasant 50-year-old female, who has a history of systemic lupus as well as atrial fibrillation. She has had a previous gastric bypass back in 2004 and then had to have a revision in 2009. She says after that, she has not been the same since. She has periodic abdominal pain as well as nausea and vomiting and then she says about 2 weeks ago, "they just took off." She says that she has been having a sharp abdominal pain, which has been constant. It goes straight through to her back and up to her left side. She says that in certain positions, it gets worse and then she cannot keep anything down. She denies any fevers or chills. No adore diarrhea, but has had loose stools off and on. Her last bowel movement was a couple of days ago and she says that it was dark and black in color. She says that she came to the ER on Saturday and Saturday and says that she does not feel that she was treated right and was sent home. Then she went to the [facility] ER, where she says they "listen to her" and then did a CT scan of the abdomen, did not see any significant change. Lab work did not reveal any significant abnormalities and she is being sent here for further treatment. When I see the patient, she was basically intermittently writhing in pain despite having a fentanyl patch on and is having some difficulty giving me most of the history. She was not able to keep anything down and she has not been able to take any of her medications for the past 2 days. REVIEW OF SYSTEMS: All systems were reviewed and are negative except for that mentioned in the history of present illness. PAST MEDICAL HISTORY: Significant for systemic lupus erythematosus, atrial fibrillation, and fibromyalgia. PAST SURGICAL HISTORY: She has had a , cholecystectomy, hysterectomy, gastric bypass in 2004, as well as a revision in 2009, and she has had multiple surgeries since then related to the bypass and kidney stones removed. ALLERGIES: TO DOXYCYCLINE, SULFA, LATEX, AND ZOFRAN. SOCIAL HISTORY: She is , has 4 children. She does not work outside the home. She is a nonsmoker and nondrinker. Denies any drug use. FAMILY HISTORY: Significant for a mother, who had diabetes, hypertension, and blood clots; and cancer and diabetes runs in the family. CURRENT MEDICATIONS: Include, 1. Tizanidine 4 mg p.o. daily. 2. Protonix 40 mg p.o. daily. 3. [place] 10/325 as needed. 4. Gabapentin 300 mg p.o. t.i.d. 5. Eliquis 5 mg p.o. b.i.d. 6. Embeda 60/2.4 b.i.d. 7. As well as fentanyl 25 mcg patch. PHYSICAL EXAMINATION: GENERAL: She is alert and oriented. She appears to be in some distress due to abdominal pain. She is well developed and well nourished, morbidly obese. VITAL SIGNS: Blood pressure was 137/97, heart rate 100, respiratory rate is 16, and temperature is 98.6. HEENT: Pupils are equal, round, and reactive. Extraocular muscles are intact. Her sclerae are anicteric. Throat, no erythema, no exudates. NECK: No adenopathy. No bruits. LUNGS: Clear to auscultation. There is no wheezing, no rales, no rhonchi. CARDIOVASCULAR: She has a normal S1, S2. There is no S3 or S4. No murmurs, clicks, or rubs. ABDOMEN: Soft. She has some diffuse abdominal tenderness, localized primarily in the epigastric region. There is no rebound, no guarding. No organomegaly. EXTREMITIES: There is no clubbing or cyanosis. No edema. No calf tenderness. No joint effusions. NEUROLOGIC: The exam is grossly nonfocal. SKIN AND INTEGUMENT: No skin changes. No rash. LABORATORY DATA: Her lab results were reviewed from the outside facility and the white blood cell count was 14, hemoglobin is 12.8, hematocrit 40.0, and platelet count is 211. Sodium 139, potassium 3.7, chloride is 101, CO2 is 24, BUN of 18, creatinine 0.7, glucose is 120. Liver function tests are negative. Lipase was 29. She had a CT scan of the abdomen and pelvis, in which it demonstrated post cholecystectomy changes and postsurgical changes of the stomach. Otherwise, no acute abnormalities were noted. ASSESSMENT: 1. This is a pleasant 50-year-old female, who is being admitted due to severe intractable abdominal pain in the setting of having a gastric bypass surgery. CT scan of the abdomen did not show any significant change and her lab work was essentially normal. CT scan, however, cannot rule out ulcer disease such as peptic ulcer disease or an anastomotic ulcer. So therefore, we will go ahead and place her in observation and get a Gastroenterology consult. In the meantime, she will be placed on IV fluids, IV antiemetics as well as IV pain medicine in addition to her Duragesic patch. Monitor her electrolytes. 2. History of atrial fibrillation. Her heart rate is normal at this time. We will continue to monitor. 3. History of blood clots and atrial fibrillation. We will put her on Lovenox since she is unable to keep any medications down and further treatment will depend on the GI evaluation. Job ID: [id number]
[2020-08-10] MEDS: Dextrose 5 % And 0.9 % NaCl 1,000 ML IV SCH (20:50)
[2020-08-10] MEDS: Enoxaparin Sodium 100 MG/ML SYRINGE SC SCH (20:50)
[2020-08-10] MEDS: Pantoprazole 40 MG VIAL IVP SCH (20:51)
--- NOTE | 2020-08-10 21:27 | CON ---
DATE OF CONSULTATION: 08/10/2020 REASON FOR CONSULTATION: Nausea, vomiting, intractable abdominal pain, and constipation. CONSULTING PROVIDER: Chris Henry MD HISTORY OF PRESENT ILLNESS: The patient is a 50-year-old female with past medical history of fibromyalgia, hypertension, GERD, atrial fibrillation on anticoagulation, chronic lower back pain, anxiety, hypothyroidism, obesity status post gastric bypass with three revisions due to increased abdominal pain, diabetes, and pancreatitis, presenting with complaints of abdominal pain, nausea, and vomiting. Per chart review, the patient has had chronic abdominal pain that has been present for at least the last 3 to 4 years, characterized as increased midepigastric/left upper quadrant abdominal pain. She states that she had been having this chronic abdominal pain up until two weeks ago when this pain actually increased in terms of severity. Currently, she describes the pain located at the midepigastric/left upper quadrant characterized as a sharp/stabbing type sensation, it is radiating to her mid back and reaching a severity of 10/10 (currently 8/10). The pain is worse with eating/drinking (even drinking water), increased physical activity, twisting movements, having a bowel movement, and not having a bowel movement, better only with the administration of morphine thus far. With this increased abdominal pain, it prompted her to seek healthcare assistance at the [facility] ER approximately 3 days ago, where she was evaluated and noted to have no abnormalities on labs and imaging and ultimately discharged to home. With this worsening abdominal pain and along with nausea vomiting, it prompted her to go to the [facility], where she was evaluated with labs and CT scan earlier today and ultimately admitted to the hospital as a direct admit from the urgent care center given no response to management as in that particular setting. On further evaluation of the patient, she states that she has been having 1 to 2 solid/semi-solid bowel movements per week ([place] 5) that would require intermittent straining and pressure to the abdomen in order to facilitate defecation. With the onset of this worsened abdominal pain, it also increased nausea and vomiting to where the patient has been having approximately 10+ bouts of emesis per day over the last week. Initially, the vomitus appeared more bilious/clear in coloration but over the last few days, she states that she has been "tasting blood" and throwing "black stuff up" she denies any grossly bloody episodes of emesis. Otherwise, she denies any fevers, chills, melena, hematochezia, dysphagia, constipation, or weight loss. On review of the patient's chart, she has had multiple hospitalizations for very similar pains in the past with one of the more recent visits in 2018 at the [facility]. She was subsequently treated conservatively with only pain management and ultimately discharged home. She did have an EGD performed in 2017 that showed "ulcers." She also had a repeat upper endoscopy in [address] Berg at the [facility] with a chronic ulceration seen at the gastrojejunostomy as well as clips that he removed as possible source of the ulcerations. The ulceration seen at the gastrojejunal anastomosis was deemed to be chronic in nature and had been seen on prior upper endoscopy. REVIEW OF SYSTEMS: A 10-category review of systems was obtained with all responses negative except for the pertinent positives as listed in HPI. PAST MEDICAL HISTORY: As per HPI. PAST SURGICAL HISTORY: Anil-en-Y gastric bypass status post three revisions, cholecystectomy, hemorrhoidectomy, appendectomy, , hysterectomy, and rotator cuff surgery. SOCIAL HISTORY: Denies any tobacco, alcohol, or illicit drug use. FAMILY HISTORY: Denies any GI malignancies. OUTPATIENT MEDICATIONS: 1. Eliquis 5 mg b.i.d. 2. Embeda 60 mg-2.4 mg b.i.d. 3. Fentanyl patch 25 mcg every 72 hours. 4. Gabapentin. 5. [place] as needed. 6. Protonix 40 mg daily. 7. Synthroid. 8. Tizanidine. ALLERGIES: DOXYCYCLINE, LATEX, REGLAN, SULFA, METOCLOPRAMIDE, AND ZOFRAN. PHYSICAL EXAMINATION: VITAL SIGNS: Temperature 98.2, pulse 120, blood pressure 157/87, respiratory rate 18, and saturating 98% on room air. GENERAL: The patient was lying in bed, in no acute distress. Alert and oriented x4. HEENT: Normocephalic and atraumatic. NECK: Supple. No JVD or scleral icterus noted. CARDIOVASCULAR: Regular rate and rhythm with no discernible murmurs, gallops, or rubs. RESPIRATORY: Clear to auscultation bilaterally with no discernible wheezes or rales. ABDOMEN: Hypoactive bowel sounds. Soft and nondistended. Tenderness to palpation in all abdominal quadrants, but most especially in the midepigastric/left upper quadrants. However, the patient did not exhibit significant pain on distraction. EXTREMITIES: No cyanosis, clubbing, or edema. LABORATORY DATA: Labs obtained earlier today at the [facility] showed a CBC with a white blood cell count of 14.2, hemoglobin 12.8, hematocrit 40, and platelets 211. Chemistry with a sodium of 139, potassium 3.7, chloride 101, CO2 of 24, BUN 18, creatinine 0.7, glucose 120, AST 28, ALT 12, alkaline phosphatase 87, and total bilirubin 0.8. IMAGING DATA: CT of the abdomen and pelvis obtained on August 07, 2020 showed trace bilateral pleural effusions in addition to a nonenhancing hypodense lesion within the right hepatic dome measuring 1.8 x 2.4 x 2.2 cm, which is stable in size. She is status post cholecystectomy with mild intrahepatic and extrahepatic dilatation with the common bile duct measuring 1.1 cm without intraluminal filling defects. There was also mild prominence of the pancreatic duct noted, but all these were stable findings when compared to imaging obtained in 2019. A CT scan was obtained at the [facility] earlier today, which showed moderate feces throughout the colon, but did not show any dilation of either the intra or extrahepatic biliary tree. Otherwise, the findings did coincide. ASSESSMENT AND PLAN: The patient is a 50-year-old female with past medical history of fibromyalgia, hypertension, GERD, diabetes, atrial fibrillation on anticoagulation, chronic lower back pain, anxiety, hypothyroidism, obesity status post gastric bypass and subsequent three surgical revisions, and pancreatitis presenting with increased midepigastric/left upper quadrant abdominal pain, nausea, and vomiting. Midepigastric/left upper quadrant abdominal pain. The patient is presenting with chronic complaints of midepigastric/left upper quadrant abdominal pain that has been present for the last 3 to 4 years. However, approximately 2 weeks ago, the severity of this pain increased from 3 to 4/10 to 10/10 type pain, that was worse with any sort of physical activity movement and only better with the administration of morphine on admission here, this was associated with increased nausea vomiting with the patient over the last 5 to 6 days has been having 10+ discrete episodes of emesis per day, but no evidence of overt hematemesis nor any coffee-grounds emesis. When compared to her prior bouts of pancreatitis in the past, she states that her current pain is similar in terms of location and character, making this a more likely diagnosis. However, differential could include acute on chronic pancreatitis, chronic constipation, chronic ulceration of the gastrojejunal anastomosis and pain associated with that, adhesive disease secondary to multiple abdominal surgeries, narcotic bowel syndrome (the patient has been on narcotics and only she performed for the last 3 to 4 years), gastroesophageal reflux disease, or possible mesenteric ischemia/ischemic colitis given the atrial fibrillation with RVR noticed on vitals tonight (less likely). Recommendations; 1. Would keep the patient n.p.o. for the next 24 to 48 hours in light of possible exacerbation of her chronic pancreatitis. 2. Would administer medications with only sips of water. 3. We will place the patient on pantoprazole 40 mg IV b.i.d. 4. Pain control per primary team, but would attempt to limit narcotic administration given the possibility of narcotic bowel syndrome and/or withdrawal. 5. Would start the patient on Naloxegol 12.5 mg daily in light of opiate-induced constipation. 6. Agree with placing the patient on promethazine for antiemetic control. 7. Would increase the IV fluids to approximately 125 mL/h in light of n.p.o. status and pancreatitis. 8. No upper endoscopy is indicated at this time given her stable H and H and upper endoscopy in the past revealing a chronic anastomotic ulcer. We will continue to follow. Please call with any questions. Job ID: [id number]
[2020-08-10] MEDS: Promethazine HCl 25 MG in Sodium Chloride 0.9% 50 ML IVPB PRN (23:49)
[2020-08-11] MEDS: Dextrose 5 % And 0.9 % NaCl 1,000 ML IV SCH ×4 (04:00→21:17)
[2020-08-11] MEDS: Morphine 4 MG/ML VIAL SLOW IVP PRN ×4 (04:05→20:54)
[2020-08-11] MEDS: Promethazine HCl 25 MG in Sodium Chloride 0.9% 50 ML IVPB PRN ×3 (05:28→21:17)
[2020-08-11 05:53] LABS: #Basophils 0.1 thou/uL (0.0-0.2); #Lymphocytes 3.2 thou/uL (1.20-3.40); #Monocytes 0.7 thou/uL (0.11-0.59); #Neutrophils 5.3 thou/uL (1.40-6.50); %Basophils 0.6 % (0.0-1.0); %Eosinophils 0.3 % (0.0-10.0); %Lymphocytes 34.1 % (21.0-51.0); %Neutrophils 56.9 % (42.0-75.0); Hemoglobin 10.1 g/dL (12.0-16.0); Mean Corpuscular HGB CONC 30.6 g/dL (32.0-36.0); Mean Corpuscular Hemoglobin 22.6 pg (27.0-31.0); Mean Corpuscular Volume 73.8 fL (78.0-98.0); Mean Platelet Volume 10.9 fL (7.4-10.4); Platelet Count 236 thou/uL (130-400); RBC Distribution Width 15.6 % (11.5-14.5); Red Blood Cell (RBC) Count 4.48 mill/uL (4.20-5.40); White Blood Cell (WBC) Count 9.2 thou/uL (4.8-10.8)
[2020-08-11 06:13] LABS: Anion Gap 15 mmol/L (10-20); BUN (Urea Nitrogen) 11 mg/dL (7.0-18.7); Calc. Creatinine Clearance 147 mL/min (70-130); Calcium 8.4 mg/dL (7.8-10.44); Carbon Dioxide 19 mmol/L (22-29); Chloride 109 mmol/L (98-107); Estimated GFR-MDRD Greater than 90; Glucose 111 mg/dL (70-105); Potassium 3.4 mmol/L (3.5-5.1); Sodium 140 mmol/L (136-145)
[2020-08-11] MEDS: Enoxaparin Sodium 100 MG/ML SYRINGE SC SCH (08:16)
[2020-08-11] MEDS: Pantoprazole 40 MG VIAL IVP SCH (08:20)
--- NOTE | 2020-08-11 09:12 | PDOC.HOSPP ---
- Subjective Encounter Date: 08/11/20 Encounter Time: 09:11 Subjective: Ms. Potter was seen today in follow-up of abdominal pain, post gastric bypass surgery. She says hr pain is a little better today. She rates it a 9/10. She looks more comfortable today. - Objective Vital Signs & Weight: Vital Signs (12 hours) Temp Pulse Resp BP BP Pulse Ox 08/11/20 07:37 98.4 F 70 16 118/77 100 08/11/20 04:00 98.5 F 73 18 105/71 99 08/11/20 00:00 99.0 F 80 18 103/70 100 Weight Weight 205 lb Result Diagrams: 08/11/20 05:27 08/11/20 05:27 Additional Labs: Accuchecks 08/10/20 08/10/20 20:29 16:50 POC Glucose 144 H 124 H Hospitalist ROS - Medication Medications: Active Medications Generic Name Dose Route Start Last Admin Trade Name Freq PRN Reason Stop Dose Admin Enoxaparin Sodium 90 mg 08/10/20 21:00 08/11/20 08:16 Enoxaparin Sodium 100 Mg/Ml Syringe SC 90 mg 0900,2100 JC Administration Fentanyl 25 mcg 08/10/20 17:00 08/10/20 17:45 Fentanyl 25 Mcg/Hour Patch TD 25 mcg Q72H JC Administration Promethazine HCl 25 mg/ Sodium 51 mls @ 204 mls/hr 08/10/20 15:25 08/11/20 05:28 Chloride IVPB 51 mls Q6H PRN Administration Nausea/Vomiting Dextrose/Sodium Chloride 1,000 mls @ 125 mls/hr 08/10/20 18:32 08/11/20 04:00 D5 0.9% Ns IV 1,000 mls .Q8H JC Administration Miscellaneous Medication 12.5 mg 08/11/20 07:30 08/11/20 08:15 Naloxegol Oxalate 12.5 Mg Tab PO 12.5 mg DAILY-AC JC Administration Morphine Sulfate 4 mg 08/10/20 15:25 08/11/20 08:21 Morphine 4 Mg/Ml Vial SLOW IVP 4 mg Q4H PRN Administration Moderate to Severe Pain (6-10) Pantoprazole Sodium 40 mg 08/10/20 21:00 08/11/20 08:20 Pantoprazole 40 Mg Vial IVP 40 mg Q12HR JC Administration - Exam Eye: PERRL, anicteric sclera Heart: RRR, no murmur, no gallops, no rubs, normal peripheral pulses Respiratory: CTAB, no wheezes, no rales, no ronchi, normal chest expansion, no tachypnea Gastrointestinal: soft, tender to palpation (+ epigastric tenderness, and diffuse tenderness, no rebound or guarding) Extremities: no cyanosis, no edema Hosp A/P (1) Abdominal pain Code(s): R10.9 - UNSPECIFIED ABDOMINAL PAIN Status: Acute (2) S/P gastric bypass Code(s): Z98.84 - BARIATRIC SURGERY STATUS Status: Chronic (3) Obesity (BMI 30-39.9) Code(s): E66.9 - OBESITY, UNSPECIFIED Status: Chronic (4) HTN (hypertension) Code(s): I10 - ESSENTIAL (PRIMARY) HYPERTENSION Status: Chronic Qualifiers: Hypertension type: essential hypertension Qualified Code(s): I10 - Essential (primary) hypertension (5) Hypothyroidism Code(s): E03.9 - HYPOTHYROIDISM, UNSPECIFIED Status: Chronic Qualifiers: Hypothyroidism type: unspecified Qualified Code(s): E03.9 - Hypothyroidism, unspecified (6) Atrial fibrillation Code(s): I48.91 - UNSPECIFIED ATRIAL FIBRILLATION Status: Chronic (7) Chronic anticoagulation Code(s): Z79.01 - DRUG ENFORCEMENT AGENT (CURRENT) USE OF ANTICOAGULANTS Status: Chronic - Plan * Abdominal pain- likely multifactoral- GI evaluation noted. I spoke with Dr. Snow who is seeing her today. He plans for EGD * Continue Bowel rest for presumed chronic pancreatitis * Continue Symptom management and pain control * Movantik has been added * Continue Protonix IV- for possible peptic ulcer, or anastomotic ulcer * AFIB on chronic anticoagulation- her heart rate is stable- continue Lovenox * HTN- her blood pressure is stable
[2020-08-11] MEDS ORDERED: PROPOFOL 200 MG/20 ML VIAL ONE (10:15)
[2020-08-11] MEDS ORDERED: Lidocaine 1% PF 5 ML VIAL ONE (10:15)
[2020-08-11] MEDS ORDERED: Fentanyl 100 MCG/2 ML VIAL ONE (11:39)
[2020-08-11] MEDS ORDERED: Metoprolol Tartrate 5 MG/5 ML VIAL ONE (11:53)
[2020-08-11] MEDS: Sucralfate 1 GM/10 ML UDCUP PO SCH ×3 (14:33→20:57)
[2020-08-11] MEDS ORDERED: Non-Formulary Item 1 EACH (Fexofenadine Hcl [Allegra Allergy] 60 MG Tablet) PO PRN (15:29)
[2020-08-11] MEDS ORDERED: diphenhydrAMINE 25 MG CAP PO PRN (15:29)
[2020-08-11] MEDS ORDERED: Sucralfate 1 GM/10 ML UDCUP PO PRN (15:29)
[2020-08-11] MEDS ORDERED: traMADol HCl 50 MG TAB PO PRN (15:29)
--- NOTE | 2020-08-11 15:41 | OP ---
DATE OF PROCEDURE: 08/11/2020 PREPROCEDURE DIAGNOSES: 1. Epigastric pain. 2. History of Anil-en-Y gastric bypass with multiple revisions secondary to complications including stricture, stenosis, and ulcers. 3. Chronic narcotic pain medicine, managed by Pain Management in [place]. 4. Severe epigastric pain, precipitating hospitalization. ANESTHESIA: TIVA. POSTPROCEDURE DIAGNOSES: 1. Large anastomotic ulcer at the gastrojejunal anastomosis on the jejunal side. 2. Otherwise normal esophagogastroduodenoscopy. RECOMMENDATIONS: 1. Carafate slurry q.i.d. 2. IV Protonix. 3. Avoid all NSAIDs. 4. Avoid smoking. 5. Clear liquid diet. 6. Agree with bowel regimen instituted by Dr. Aguilar. PROCEDURE IN DETAIL: After the patient was informed of the risks, benefits, and possible complications of endoscopy, she was brought to endoscopy suite where she was sedated in gradual fashion. Once she was comfortable, a bite-block was placed inside the orifice. The endoscope was advanced to the esophagus, which was normal, into the gastric pouch and it was normal in size. There was no gastric outlet obstruction, but just below the anastomosis on the duodenal side, there was a large chronic-appearing white based ulcer. This was not biopsied. She has had these problems in the past. The scope was advanced beyond this into the jejunal limb, which was normal to the extent I could reach. I could not reach jejunojejunal anastomosis. The scope was brought back up to the pouch. Retroflexed views were performed, which were normal. The scope was removed. The patient tolerated the procedure well. There were no complications. Job ID: [id number]
[2020-08-11] MEDS ORDERED: Zolpidem Tartrate 5 MG TAB PO PRN (16:55)
[2020-08-11] MEDS ORDERED: Loratadine 10 MG TAB PO PRN (16:58)
[2020-08-11] MEDS ORDERED: Cyanocobalamin 1000 MCG/ML VIAL IM SCH (17:00)
[2020-08-11] MEDS: Gabapentin 300 MG CAP PO SCH (20:51)
[2020-08-11] MEDS: Metoprolol Tartrate 50 MG TAB PO SCH (20:52)
[2020-08-11] MEDS: Apixaban 5 MG TAB PO SCH (20:52)
[2020-08-12] MEDS: Morphine 4 MG/ML VIAL SLOW IVP PRN ×5 (01:23→19:56)
[2020-08-12] MEDS: Levothyroxine Sodium 25 MCG TAB PO SCH (05:32)
[2020-08-12] MEDS: Dextrose 5 % And 0.9 % NaCl 1,000 ML IV SCH ×2 (08:55→18:15)
[2020-08-12] MEDS: Cholecalciferol 1,000 UNITS (25 MCG) TAB PO SCH (08:56)
[2020-08-12] MEDS: Gabapentin 300 MG CAP PO SCH ×3 (08:56→19:50)
[2020-08-12] MEDS: Escitalopram Oxalate 20 mg Tablet PO SCH (08:56)
[2020-08-12] MEDS: Apixaban 5 MG TAB PO SCH ×2 (08:56→19:50)
[2020-08-12] MEDS: Multivitamin W/ Minerals 1 TAB PO SCH (08:56)
[2020-08-12] MEDS: Sucralfate 1 GM/10 ML UDCUP PO SCH ×4 (08:56→19:51)
[2020-08-12] MEDS: Promethazine HCl 25 MG in Sodium Chloride 0.9% 50 ML IVPB PRN ×2 (09:37→19:49)
[2020-08-12] MEDS: Metoprolol Tartrate 50 MG TAB PO SCH ×2 (10:00→19:51)
--- NOTE | 2020-08-12 11:47 | PDOC.HOSPP ---
- Subjective Encounter Date: 08/12/20 Encounter Time: 11:37 Subjective: Ms. Potter was seen today in follow-up of abdominal pain following gastric bypass surgery. - Objective Vital Signs & Weight: Vital Signs (12 hours) Temp Pulse Resp BP BP Pulse Ox 08/12/20 07:48 98.0 F 71 20 114/71 99 08/12/20 04:00 98.1 F 73 0 L 105/68 99 Weight Admit Weight 205 lb Weight 205 lb Result Diagrams: 08/11/20 05:27 08/11/20 05:27 Additional Labs: Accuchecks 08/12/20 08/12/20 08/11/20 11:24 05:07 19:20 POC Glucose 140 H 123 H 138 H 08/11/20 16:00 POC Glucose 132 H Hospitalist ROS - Medication Medications: Active Medications Generic Name Dose Route Start Last Admin Trade Name Freq PRN Reason Stop Dose Admin Apixaban 5 mg 08/11/20 21:00 08/12/20 08:56 Apixaban 5 Mg Tab PO 5 mg BID JC Administration Cholecalciferol 1,000 units 08/12/20 09:00 08/12/20 08:56 Cholecalciferol 1,000 Units (25 Mcg) Tab PO 1,000 units DAILY JC Administration Cyanocobalamin 1,000 mcg 08/11/20 17:00 08/11/20 17:48 Cyanocobalamin 1000 Mcg/Ml Vial IM 1,000 mcg Q14D JC Administration Escitalopram Oxalate 10 mg 08/12/20 09:00 08/12/20 08:56 Escitalopram Oxalate 20 Mg Tablet PO 10 mg QAM JC Administration Fentanyl 25 mcg 08/10/20 17:00 08/10/20 17:45 Fentanyl 25 Mcg/Hour Patch TD 25 mcg Q72H JC Administration Gabapentin 300 mg 08/11/20 21:00 08/12/20 08:56 Gabapentin 300 Mg Cap PO 300 mg TID JC Administration Promethazine HCl 25 mg/ Sodium 51 mls @ 204 mls/hr 08/10/20 15:25 08/12/20 09:37 Chloride IVPB 51 mls Q6H PRN Administration Nausea/Vomiting Dextrose/Sodium Chloride 1,000 mls @ 100 mls/hr 08/11/20 11:33 08/12/20 08:55 D5 0.9% Ns IV 1,000 mls .Q10H JC Administration Iron/Minerals/Multivitamins 1 tab 08/12/20 09:00 08/12/20 08:56 Multivitamin W/ Minerals 1 Tab PO 1 tab DAILY JC Administration Levothyroxine Sodium 25 mcg 08/12/20 06:00 08/12/20 05:32 Levothyroxine Sodium 25 Mcg Tab PO 25 mcg 0600 JC Administration Metoprolol Tartrate 50 mg 08/11/20 21:00 08/12/20 10:00 Metoprolol Tartrate 50 Mg Tab PO 50 mg BID JC Administration Miscellaneous Medication 12.5 mg 08/11/20 07:30 08/12/20 09:37 Naloxegol Oxalate 12.5 Mg Tab PO 12.5 mg DAILY-AC JC Administration Morphine Sulfate 4 mg 08/10/20 15:25 08/12/20 09:13 Morphine 4 Mg/Ml Vial SLOW IVP 4 mg Q4H PRN Administration Moderate to Severe Pain (6-10) Pantoprazole Sodium 40 mg 08/11/20 21:00 08/12/20 08:56 Pantoprazole 40 Mg Tab PO 40 mg BID JC Administration Sodium Chloride 10 ml 08/11/20 21:00 08/12/20 08:57 Flush - Normal Saline 10 Ml Syringe IVF Not Given Q12HR JC Sodium Chloride 10 ml 08/11/20 13:30 08/11/20 13:28 Flush - Normal Saline 10 Ml Syringe IVF 10 ml PRN PRN Administration Saline Flush Sucralfate 1 gm 08/11/20 13:00 08/12/20 08:56 Sucralfate 1 Gm/10 Ml Udcup PO 1 gm QID JC Administration - Exam Eye: PERRL, anicteric sclera Heart: RRR, no murmur, no gallops, no rubs, normal peripheral pulses Respiratory: CTAB, no wheezes, no rales, no ronchi, normal chest expansion, no tachypnea, normal percussion Gastrointestinal: soft, non-tender, non-distended, normal bowel sounds, no palpable masses, no hepatomegaly Extremities: no cyanosis, no edema Hosp A/P (1) Abdominal pain Code(s): R10.9 - UNSPECIFIED ABDOMINAL PAIN Status: Acute (2) S/P gastric bypass Code(s): Z98.84 - BARIATRIC SURGERY STATUS Status: Chronic (3) Obesity (BMI 30-39.9) Code(s): E66.9 - OBESITY, UNSPECIFIED Status: Chronic (4) HTN (hypertension) Code(s): I10 - ESSENTIAL (PRIMARY) HYPERTENSION Status: Chronic Qualifiers: Hypertension type: essential hypertension Qualified Code(s): I10 - Essential (primary) hypertension (5) Hypothyroidism Code(s): E03.9 - HYPOTHYROIDISM, UNSPECIFIED Status: Chronic Qualifiers: Hypothyroidism type: unspecified Qualified Code(s): E03.9 - Hypothyroidism, unspecified (6) Atrial fibrillation Code(s): I48.91 - UNSPECIFIED ATRIAL FIBRILLATION Status: Chronic (7) Chronic anticoagulation Code(s): Z79.01 - SENIOR LIVING (CURRENT) USE OF ANTICOAGULANTS Status: Chronic - Plan * Abdominal pain- likely multifactoral- EGD findings noted * She has a large anastomotic ulcer- she has been placed on high dose Carafate * Continue Symptom management and pain control * Movantik has been added * Continue Protonix IV * AFIB on chronic anticoagulation- her heart rate is stable- continue Lovenox * HTN- her blood pressure is stable * Advance her diet to full liquids
--- NOTE | 2020-08-12 15:43 | PRG ---
DATE OF SERVICE: 08/12/2020 SUBJECTIVE: Ms. Potter feels better. Her stomach is feeling better. . She has had no fever or chills. She has had a bowel movement. OBJECTIVE: VITAL SIGNS: Temperature 98, pulse 71, respirations 18, T-max 99.7 , blood pressure 114/71. ABDOMEN: Soft, nontender. LABORATORY DATA: Labs today none. ASSESSMENT: 1. Anastomotic ulcer, Anil-en-Y gastric bypass secondary to NSAID use. 2. Chronic pain, on multiple narcotics. 3. Narcotic-induced constipation, now on motility agents with good bowel movements. RECOMMENDATIONS: 1. Advance diet as tolerated. 2. Avoid all NSAIDs. 3. When she is no longer having vomiting, we can change to p.o. PPI. Continue with Carafate suspension q.i.d. for 8 weeks. 4. We will defer to Internal Medicine Service, but they can wean her off IV narcotics, get her back on her home medications and hopefully get her home. She should go home with either MiraLAX and Senokot daily as a bowel regimen to go along with her heavy narcotic use or she can go home on the Movantik as well. She needs to be on a bowel regimen in light of her chronic narcotic use. We will sign off at this point. If I can be of any further assistance in the patient's care, please do not hesitate to contact me. Job ID: [id number]
[2020-08-13] MEDS: Dextrose 5 % And 0.9 % NaCl 1,000 ML IV SCH ×2 (03:32→15:05)
[2020-08-13] MEDS: Promethazine HCl 25 MG in Sodium Chloride 0.9% 50 ML IVPB PRN ×2 (03:33→11:25)
[2020-08-13] MEDS: Morphine 4 MG/ML VIAL SLOW IVP PRN ×4 (03:33→17:04)
[2020-08-13] MEDS: Levothyroxine Sodium 25 MCG TAB PO SCH (05:56)
[2020-08-13] MEDS: Cholecalciferol 1,000 UNITS (25 MCG) TAB PO SCH (08:24)
[2020-08-13] MEDS: Apixaban 5 MG TAB PO SCH (08:25)
[2020-08-13] MEDS: Sucralfate 1 GM/10 ML UDCUP PO SCH ×3 (08:25→16:31)
[2020-08-13] MEDS: Gabapentin 300 MG CAP PO SCH ×2 (08:25→15:46)
[2020-08-13] MEDS: Multivitamin W/ Minerals 1 TAB PO SCH (08:25)
[2020-08-13] MEDS: Metoprolol Tartrate 50 MG TAB PO SCH (08:25)
[2020-08-13] MEDS: Escitalopram Oxalate 20 mg Tablet PO SCH (08:25)
--- NOTE | 2020-08-13 13:57 | PDOC.HOSPP ---
- Subjective Encounter Date: 08/13/20 Encounter Time: 13:55 Subjective: Ms. Potter was seen today in follow-up of abdominal pain. She admits to feeling better. - Objective Vital Signs & Weight: Vital Signs (12 hours) Temp Pulse Resp BP Pulse Ox 08/13/20 11:51 98.2 F 63 16 122/78 97 08/13/20 08:00 97.2 F L 85 16 102/69 98 08/13/20 04:00 98.1 F 75 18 134/89 97 Weight Admit Weight 205 lb Weight 205 lb I&O: 08/12/20 08/13/20 08/14/20 06:59 06:59 06:59 Intake Total 1970 Balance 1970 Result Diagrams: 08/11/20 05:27 08/11/20 05:27 Additional Labs: Accuchecks 08/13/20 08/13/20 08/12/20 11:55 05:31 20:11 POC Glucose 103 H 108 H 89 08/12/20 16:12 POC Glucose 118 H Hospitalist ROS - Medication Medications: Active Medications Generic Name Dose Route Start Last Admin Trade Name Freq PRN Reason Stop Dose Admin Apixaban 5 mg 08/11/20 21:00 08/13/20 08:25 Apixaban 5 Mg Tab PO 5 mg BID JC Administration Cholecalciferol 1,000 units 08/12/20 09:00 08/13/20 08:24 Cholecalciferol 1,000 Units (25 Mcg) Tab PO 1,000 units DAILY JC Administration Cyanocobalamin 1,000 mcg 08/11/20 17:00 08/11/20 17:48 Cyanocobalamin 1000 Mcg/Ml Vial IM 1,000 mcg Q14D JC Administration Diphenhydramine HCl 25 mg 08/11/20 15:29 08/13/20 03:42 Diphenhydramine 25 Mg Cap PO 25 mg Q6H PRN Administration Allergies Escitalopram Oxalate 10 mg 08/12/20 09:00 08/13/20 08:25 Escitalopram Oxalate 20 Mg Tablet PO 10 mg QAM JC Administration Fentanyl 25 mcg 08/10/20 17:00 08/10/20 17:45 Fentanyl 25 Mcg/Hour Patch TD 25 mcg Q72H JC Administration Gabapentin 300 mg 08/11/20 21:00 08/13/20 08:25 Gabapentin 300 Mg Cap PO 300 mg TID JC Administration Promethazine HCl 25 mg/ Sodium 51 mls @ 204 mls/hr 08/10/20 15:25 08/13/20 11:25 Chloride IVPB 51 mls Q6H PRN Administration Nausea/Vomiting Dextrose/Sodium Chloride 1,000 mls @ 100 mls/hr 08/11/20 11:33 08/13/20 03:32 D5 0.9% Ns IV 1,000 mls .Q10H JC Administration Iron/Minerals/Multivitamins 1 tab 08/12/20 09:00 08/13/20 08:25 Multivitamin W/ Minerals 1 Tab PO 1 tab DAILY JC Administration Levothyroxine Sodium 25 mcg 08/12/20 06:00 08/13/20 05:56 Levothyroxine Sodium 25 Mcg Tab PO 25 mcg 0600 JC Administration Metoprolol Tartrate 50 mg 08/11/20 21:00 08/13/20 08:25 Metoprolol Tartrate 50 Mg Tab PO Not Given BID JC Miscellaneous Medication 12.5 mg 08/11/20 07:30 08/13/20 08:24 Naloxegol Oxalate 12.5 Mg Tab PO 12.5 mg DAILY-AC JC Administration Morphine Sulfate 4 mg 08/10/20 15:25 08/13/20 13:03 Morphine 4 Mg/Ml Vial SLOW IVP 4 mg Q4H PRN Administration Moderate to Severe Pain (6-10) Pantoprazole Sodium 40 mg 08/11/20 21:00 08/13/20 08:24 Pantoprazole 40 Mg Tab PO 40 mg BID JC Administration Sodium Chloride 10 ml 08/11/20 21:00 08/13/20 08:26 Flush - Normal Saline 10 Ml Syringe IVF Not Given Q12HR JC Sodium Chloride 10 ml 08/11/20 13:30 08/11/20 13:28 Flush - Normal Saline 10 Ml Syringe IVF 10 ml PRN PRN Administration Saline Flush Sucralfate 1 gm 08/11/20 13:00 08/13/20 13:02 Sucralfate 1 Gm/10 Ml Udcup PO 1 gm QID JC Administration - Exam Eye: PERRL, anicteric sclera Heart: RRR, no murmur, no gallops, no rubs, normal peripheral pulses Respiratory: CTAB, no wheezes, no rales, no ronchi, normal chest expansion, no tachypnea, normal percussion Gastrointestinal: soft, non-distended, normal bowel sounds Extremities: no cyanosis, no edema Hosp A/P (1) Abdominal pain Code(s): R10.9 - UNSPECIFIED ABDOMINAL PAIN Status: Acute (2) S/P gastric bypass Code(s): Z98.84 - BARIATRIC SURGERY STATUS Status: Chronic (3) Obesity (BMI 30-39.9) Code(s): E66.9 - OBESITY, UNSPECIFIED Status: Chronic (4) HTN (hypertension) Code(s): I10 - ESSENTIAL (PRIMARY) HYPERTENSION Status: Chronic Qualifiers: Hypertension type: essential hypertension Qualified Code(s): I10 - E ssential (primary) hypertension (5) Hypothyroidism Code(s): E03.9 - HYPOTHYROIDISM, UNSPECIFIED Status: Chronic Qualifiers: Hypothyroidism type: unspecified Qualified Code(s): E03.9 - Hypothyroidism, unspecified (6) Atrial fibrillation Code(s): I48.91 - UNSPECIFIED ATRIAL FIBRILLATION Status: Chronic (7) Chronic anticoagulation Code(s): Z79.01 - CHIEF ACCOUNTING OFFICER (CURRENT) USE OF ANTICOAGULANTS Status: Chronic - Plan * Abdominal pain- improved * She is stable for discharge home
--- NOTE | 2020-08-13 15:56 | PRG ---
DATE OF SERVICE: 08/13/2020 SUBJECTIVE: Ms. Potter feels a little better. She states she is ready to go home. OBJECTIVE: VITAL SIGNS: Temperature 98.2, pulse 63, and blood pressure 122/78. ABDOMEN: Nontender. LABORATORY DATA: Not repeated. ASSESSMENT: Anastomotic ulcer, gastrojejunal anastomosis. RECOMMENDATIONS: She is not to use NSAIDs, that she take a PPI b.i.d., and she has Carafate suspension for 8 weeks. She has followup with her manager family in [facility] in [place]. Diet can be typical bariatric diet. There was no evidence of stenosis or stricture. We will sign off. Job ID: [id number]
[2020-08-13 16:13] VITALS: BP 151/91; TEMP 97.5
--- NOTE | 2020-08-13 21:13 | DIS ---
DATE OF ADMISSION: 08/12/2020 DATE OF DISCHARGE: 08/13/2020 PRIMARY CARE PHYSICIAN: None. DISCHARGE DIAGNOSES: 1. Anastomotic ulcer. 2. Abdominal pain. 3. Obesity. 4. Systemic lupus erythematosus. 5. Atrial fibrillation. 6. Fibromyalgia. DISCHARGE MEDICATIONS: Include: 1. Tramadol 50 mg q.i.d. as needed. 2. Phenergan 25 mg q.6 as needed. 3. Movantik 12.5 mg p.o. daily. 4. Carafate 1 g p.o. q.i.d. 5. Vitamin D3 of 1000 units p.o. daily. 6. B12 of 1000 mcg IM q.month. 7. Tizanidine 2 mg p.o. q.i.d. 8. Levothyroxine 25 mcg p.o. daily. 9. Protonix 40 mg p.o. b.i.d. 10. Multivitamin one tablet p.o. daily. 11. Metformin 500 mg p.o. at bedtime. 12. Lunesta 1 mg p.o. at bedtime as needed. 13. Metoprolol 50 mg p.o. b.i.d. 14. Lexapro 10 mg p.o. daily. 15. Iron 65 mg p.o. daily. 16. [place] 10/325 q.4 hours as needed. 17. Gabapentin 300 mg p.o. t.i.d. 18. Fentanyl patch 25 mcg transdermal q.72 hours. 19. Eliquis 5 mg p.o. b.i.d. 20. Claritin 10 mg daily. 21. Benadryl 25 mg q.6 hours as needed. IMAGING DONE DURING HOSPITAL STAY: The patient had a CT scan of the abdomen and pelvis, main findings of which showing a gastric wall thickening and evidence of a post antecolic gastric Anil-en-Y, status post cholecystectomy, moderate dilatation of the common duct. The patient also had an upper endoscopy, which demonstrated a large anastomotic ulcer. CODE STATUS: Full code. ALLERGIES: DOXYCYCLINE, LATEX, METOCLOPRAMIDE, ZOFRAN, AND FLU SHOT. HOSPITAL COURSE: Ms. Potter is a pleasant 50-year-old female who was admitted to the hospital after having severe abdominal pain. When I came to see the patient, she was basically retching and was rolling around in pain. She stated that it somewhat radiated to the back. She has a complicated abdominal surgical history in that she has had a previous gastric bypass, which had to have a redo due to complications. She has had up to 5 abdominal surgeries as a result of the complication of the gastric bypass including stricture, stenosis, and anastomotic ulcers. She was admitted to our facility and in that she had went to the emergency room on several occasions. CT scan of the abdomen was essentially unremarkable. She was evaluated by Gastroenterology Service. It was initially thought that she could potentially have a chronic pancreatitis with an [id number] episode. She did undergo upper endoscopy, which demonstrated a large anastomotic ulcer. She admits to on occasion taking NSAIDs for pain control. She was counseled on the need to try to completely eliminate NSAID use. She is also on chronic narcotics due to chronic abdominal pain and some degree of constipation is contributing to her pain. She was placed on a bowel regimen and Movantik was added to her regimen. She has been instructed to follow up with her specialist in [place] and also to establish a primary care physician in the [facility] area. At the time of discharge, she was tolerating a full liquid diet and information was given to her on a bariatric soft diet as well as information to help in the nonpharmacological treatment of peptic ulcer disease. Job ID: [id number]
--- NOTE | 2020-08-19 10:58 | PQF ---
CLINICAL DOCUMENTATION CLARIFICATION FORM: Dear : Chris Henry MD Date / Time: 08/19/2020 Please exercise your independent, professional judgment in responding to the clarification form. Clinical indicators are provided on the bottom of this form for your review Please check appropriate box(es): [ X] Abdominal pain due to drug induced constipation [ X ] Abdominal pain due to anastomotic ulcer [ ] Abdominal pain due to acute on chronic pancreatitis [ ] Other diagnosis (Please specify if any) [ ] Unable to determine Physician Signature: Date/Time: For continuity of documentation, please document condition throughout progress notes and discharge summary. Thank You. To be completed by CDI/Coding staff for physician review: Present Clinical Indicators - Signs / Symptoms / Labs Results and Location in Medical Record [x] It was initially thought that she could potentially have a chronic pancreatitis with an acute on chronic episode Discharge summary on 08/13 [x] Past medical history: pancreatitis Consult on 08/10 [x] Would start the patient on naloxegol 12.5mg daily in light of opiate induced constipation Consult on 08/10 [x] She is also on chronic narcotics due to chronic abdominal pain and some degree of constipation is contributing to her pain Discharge summary on 08/13 [x] Would increase the IV fluids to approximately 125ml/hr in light of n.p.o status and pancreatitis Consult on 08/10 [x] Large anastomotic ulcer at the gastrojejunal anastomosis on the jejunal side OP note on 08/11 Present Risk Factors Results and Location in Medical Record [x] History of gastric bypass with multiple revision OP note on 08/11 [x] She is also on chronic narcotics due to chronic abdominal pain and some degree of constipation is contributing to her pain Discharge summary on 08/13 Present Treatments Results and Location in Medical Record [x] Movantik 12.5mg PO Medication from 08/11 to 08/13 [x] Protonix 40 mg PO BID Medication from 08/11 to 08/13 [x] NaCl[D 5 0.9% NS] 1,000 ml Medication from 08/11 to 08/13 [x] Esophagogastroduodenoscopy EGD on 08/11 CDS/Manual Control [employer] Signature: AAS Phone #: Date/Time: 08/19/2020 This is a permanent part of the Medical Record MTDD
== END 2020-08-13 17:50 | disposition home or self-care (01) | DRG 394 ==
LOC: T4-A 12:58 → OBSVTOIN 08-12 13:13
PROVIDERS: ADMIT Internal Medicine; ATTEND Internal Medicine
PROC: 0DJ08ZZ Inspection of Upper Intestinal Tract, Via Natural or Artificial Opening Endoscopic (ICD-10-PCS; principal; 2020-08-11)
DX: K91.89 Other postprocedural complications and disorders of digestive system (principal); K86.1 Other chronic pancreatitis; Y83.9 Surgical procedure, unspecified as the cause of abnormal reaction of the patient, or of later complication, without mention of misadventure at the time of the procedure; K59.03 Drug induced constipation; I48.91 Unspecified atrial fibrillation; F41.9 Anxiety disorder, unspecified; K21.9 Gastro-esophageal reflux disease without esophagitis; E03.9 Hypothyroidism, unspecified; T40.605A Adverse effect of unspecified narcotics, initial encounter; M32.9 Systemic lupus erythematosus, unspecified; M79.7 Fibromyalgia; E66.9 Obesity, unspecified; Z90.49 Acquired absence of other specified parts of digestive tract; Z90.710 Acquired absence of both cervix and uterus; Z98.890 Other specified postprocedural states; Z88.2 Allergy status to sulfonamides; Z88.1 Allergy status to other antibiotic agents; Z79.01 Long term (current) use of anticoagulants; Z88.8 Allergy status to other drugs, medicaments and biological substances; Z91.040 Latex allergy status; Z68.35 Body mass index [BMI] 35.0-35.9, adult; K28.9 Gastrojejunal ulcer, unspecified as acute or chronic, without hemorrhage or perforation
CPT/HCPCS: 36415; 36416; 80048; 85025; 96361; 96365; 96372; 96375; 96376; C9113; G0378; J1650; J2270; J2550; J2704; J3010; J3420; Q0163

== ENCOUNTER 2021-02-08 16:30 | Emergency (ER) | payer BC, MEDICARE, MEDICAID ==
[~2021-02-08 16:30] MED LIST changes: -Iopamidol 370 76% 100 ML VIAL ONE; +Iopamidol-370 76% 500 ML 1 ML ONE
[2021-02-08 17:28] LABS: #Basophils 0.1 thou/uL (0.0-0.2); #Eosinphils 0.1 thou/uL (0.0-0.7); #Lymphocytes 3.8 thou/uL (1.20-3.40); #Monocytes 0.5 thou/uL (0.11-0.59); #Neutrophils 3.4 thou/uL (1.40-6.50); %Eosinophils 0.9 % (0.0-10.0); %Lymphocytes 48.4 % (21.0-51.0); %Monocytes 6.2 % (0.0-10.0); %Neutrophils 43.4 % (42.0-75.0); Hemoglobin 10.5 g/dL (12.0-16.0); Hypochromia SLIGHT = 6-15 cells (100X) (0-5/hpf); MDiff Complete? YES; Mean Corpuscular HGB CONC 31.2 g/dL (32.0-36.0); Mean Corpuscular Hemoglobin 22.1 pg (27.0-31.0); Mean Corpuscular Volume 70.7 fL (78.0-98.0); Mean Platelet Volume 11.4 fL (7.4-10.4); Microcytosis MODERATE=15-30 cells (100X) (0-5/hpf); Platelet Count 233 thou/uL (130-400); Platelet Morphology Comment Appears Adequate; RBC Distribution Width 16.1 % (11.5-14.5); Red Blood Cell (RBC) Count 4.76 mill/uL (4.20-5.40); White Blood Cell (WBC) Count 7.9 thou/uL (4.8-10.8)
[2021-02-08 17:37] LABS: ALT (SGPT) 17 U/L (8-55); AST (SGOT) 19 U/L (5-34); Albumin 3.7 g/dL (3.5-5.0); Alkaline Phosphatase 95 U/L (40-110); Anion Gap 14 mmol/L (10-20); BUN (Urea Nitrogen) 11 mg/dL (7.0-18.7); Bilirubin, Total 0.2 mg/dL (0.2-1.2); Calc. Creatinine Clearance 0 mL/min (70-130); Carbon Dioxide 27 mmol/L (22-29); Chloride 103 mmol/L (98-107); Globulin 3.4 g/dL (2.4-3.5); Glucose 133 mg/dL (70-105); Lipase 50 U/L (8-78); Potassium 4.6 mmol/L (3.5-5.1); Protein, Total 7.1 g/dL (6.0-8.3); Sodium 139 mmol/L (136-145)
== END 2021-02-08 18:37 | disposition home or self-care (01) ==
LOC: ERS 16:30
DX: M79.604 Pain in right leg (principal); R07.9 Chest pain, unspecified; I10 Essential (primary) hypertension; I48.91 Unspecified atrial fibrillation; E11.9 Type 2 diabetes mellitus without complications; Z87.442 Personal history of urinary calculi
CPT/HCPCS: 71275; 80053; 83690; 84484; 85025; 85379; 93005; Q9967

== ENCOUNTER 2021-11-18 20:01 | Emergency (ER) | payer MEDICARE, MEDICAID ==
[2021-11-18 21:05] LABS: ALT (SGPT) 22 U/L (8-55); AST (SGOT) 36 U/L (5-34); Albumin 3.5 g/dL (3.5-5.0); Alkaline Phosphatase 76 U/L (40-110); Anion Gap 13 mmol/L (10-20); BUN (Urea Nitrogen) 5 mg/dL (9.8-20.1); Bilirubin, Total 0.2 mg/dL (0.2-1.2); Calc. Creatinine Clearance 0 mL/min (70-130); Calcium 8.6 mg/dL (7.8-10.44); Carbon Dioxide 23 mmol/L (22-29); Chloride 106 mmol/L (98-107); Glucose 153 mg/dL (70-105); Lipase 78 U/L (8-78); Potassium 6.1 mmol/L (3.5-5.1); Protein, Total 7.5 g/dL (6.0-8.3); Sodium 136 mmol/L (136-145)
[2021-11-18] MEDS ORDERED: Aspirin Chewable 81 MG TAB ONE (21:40)
[2021-11-18 21:48] LABS: #Eosinphils 0.1 thou/uL (0.0-0.7); #Lymphocytes 3.2 thou/uL (1.20-3.40); #Monocytes 0.7 thou/uL (0.11-0.59); #Neutrophils 3.2 thou/uL (1.40-6.50); %Basophils 0.5 % (0.0-1.0); %Eosinophils 1.8 % (0.0-10.0); %Lymphocytes 44.4 % (21.0-51.0); %Monocytes 9.3 % (0.0-10.0); %Neutrophils 44.1 % (42.0-75.0); Anisocytosis MODERATE=16-30 cells (100X) (0-5/hpf); Elliptocytes SLIGHT = 2-5 cells (100X) (0-1/hpf); Hemoglobin 10.7 g/dL (12.0-16.0); Hypochromia SLIGHT = 6-15 cells (100X) (0-5/hpf); MDiff Complete? YES; Mean Corpuscular HGB CONC 31.9 g/dL (32.0-36.0); Mean Corpuscular Hemoglobin 21.7 pg (27.0-31.0); Mean Corpuscular Volume 67.9 fL (78.0-98.0); Mean Platelet Volume 6.5 fL (7.4-10.4); Platelet Count 271 thou/uL (130-400); Platelet Morphology Comment Appears Adequate; Polychromasia SLIGHT = 2-3 cells (100X) (0-2/hpf); RBC Distribution Width 17.1 % (11.5-14.5); Red Blood Cell (RBC) Count 4.92 mill/uL (4.20-5.40); White Blood Cell (WBC) Count 7.2 thou/uL (4.8-10.8)
[2021-11-18 21:50] LABS: Bacteria/HPF None Seen HPF (None Seen); Bilirubin Negative (Negative); Blood, Urine Negative (Negative); Clarity Clear (Clear); Glucose, Urine (Dipstick) 70 mg/dL (Negative); Ketone, Urine Negative (Negative); Leukocyte Negative Leu/uL (Negative); Mucous/LPF Rare LPF (<2+); Nitrite Negative (Negative); Protein, Urine (Dipstick) 30 mg/dL (Neg-Trace); RBC/HPF 0-3 HPF (0-3); Specific Gravity, Urine 1.048 (1.002-1.036); Squamous Epithelial 0-3 HPF (0-3); Urobilinogen 3 mg/dL (Less than 2); WBC/HPF 0-3 HPF (0-3); pH, Urine 5.5 (5.0-9.0)
[2021-11-18 22:10] LABS: Calcium Oxalate Crystals 2+ HPF (None Seen)
[2021-11-18 22:24] LABS: Yeast-Budding None Seen HPF (None Seen)
[2021-11-18] MEDS ORDERED: Morphine 4 MG/ML VIAL ONE (23:55)
[2021-11-19 00:36] LABS: Anion Gap 13 mmol/L (10-20); BUN (Urea Nitrogen) 5 mg/dL (9.8-20.1); Calc. Creatinine Clearance 0 mL/min (70-130); Calcium 9.6 mg/dL (7.8-10.44); Carbon Dioxide 27 mmol/L (22-29); Chloride 105 mmol/L (98-107); Glucose 147 mg/dL (70-105); Potassium 5.5 mmol/L (3.5-5.1); Sodium 139 mmol/L (136-145)
== END 2021-11-19 01:08 | disposition home or self-care (01) ==
LOC: ERS 20:01
DX: E87.5 Hyperkalemia (principal); K59.00 Constipation, unspecified; I48.91 Unspecified atrial fibrillation; I10 Essential (primary) hypertension; E11.9 Type 2 diabetes mellitus without complications
CPT/HCPCS: 36415; 51701; 71045; 80053; 81003; 81015; 83690; 83880; 84484; 85025; 93005; 94760; 96372; J2270

== ENCOUNTER 2021-12-18 15:10 | Emergency (ER) | payer MEDICARE, MEDICAID ==
[2021-12-18 15:58] LABS: #Eosinphils 0.1 thou/uL (0.0-0.7); #Lymphocytes 2.2 thou/uL (1.20-3.40); #Monocytes 0.6 thou/uL (0.11-0.59); %Basophils 0.6 % (0.0-1.0); %Eosinophils 1.3 % (0.0-10.0); %Lymphocytes 31.3 % (21.0-51.0); %Monocytes 8.5 % (0.0-10.0); %Neutrophils 58.4 % (42.0-75.0); Hemoglobin 10.9 g/dL (12.0-16.0); Mean Corpuscular HGB CONC 31.2 g/dL (32.0-36.0); Mean Corpuscular Hemoglobin 21.3 pg (27.0-31.0); Mean Corpuscular Volume 68.3 fL (78.0-98.0); Mean Platelet Volume 6.7 fL (7.4-10.4); Platelet Count 302 thou/uL (130-400); Red Blood Cell (RBC) Count 5.13 mill/uL (4.20-5.40); White Blood Cell (WBC) Count 6.9 thou/uL (4.8-10.8)
[2021-12-18 16:12] LABS: BHCG - Serum Negative (NEGATIVE); Pregs Control Background? CLEAR/WHITE (CLR/WHITE); Pregs Control Bar Appear? YES (CONTROL BAR)
[2021-12-18] MEDS ORDERED: Promethazine HCl 25 MG/ML VIAL ONE (16:56)
[2021-12-18] MEDS ORDERED: Ketorolac Tromethamine 30 MG/ML VIAL ONE (16:56)
[2021-12-18 17:11] LABS: ALT (SGPT) 26 U/L (8-55); AST (SGOT) 31 U/L (5-34); Albumin 3.9 g/dL (3.5-5.0); Anion Gap 15 mmol/L (10-20); BUN (Urea Nitrogen) 8 mg/dL (9.8-20.1); Bilirubin, Total 0.5 mg/dL (0.2-1.2); Calc. Creatinine Clearance 0 mL/min (70-130); Carbon Dioxide 23 mmol/L (22-29); Chloride 103 mmol/L (98-107); Globulin 3.4 g/dL (2.4-3.5); Glucose 157 mg/dL (70-105); Potassium 4.4 mmol/L (3.5-5.1); Protein, Total 7.3 g/dL (6.0-8.3); Sodium 137 mmol/L (136-145)
[2021-12-18 17:45] LABS: Alkaline Phosphatase 69 U/L (40-110)
[2021-12-18] MEDS ORDERED: diphenhydrAMINE 50 MG/ML VIAL ONE (18:12)
[2021-12-18] MEDS ORDERED: Metoclopramide HCl 10 MG/2 ML VIAL ONE (18:12)
[2021-12-18 19:22] LABS: Bacteria/HPF None Seen HPF (None Seen); Bilirubin Negative (Negative); Blood, Urine Negative (Negative); Clarity Clear (Clear); Glucose, Urine (Dipstick) Normal (Negative); Ketone, Urine Negative (Negative); Leukocyte 25 Leu/uL (Negative); Nitrite Negative (Negative); Protein, Urine (Dipstick) Negative (Neg-Trace); RBC/HPF 0-3 HPF (0-3); Specific Gravity, Urine 1.017 (1.002-1.036); Urobilinogen Normal mg/dL (Less than 2); pH, Urine 5.5 (5.0-9.0)
[2021-12-18] MEDS ORDERED: Acetaminophen 500 MG TAB ONE ×2 (20:16→20:20)
[2021-12-18] MEDS ORDERED: Ibuprofen 800 MG TAB ONE (20:16)
[2021-12-19 00:47] LABS: SARS-CoV-2 PCR by NAA Not Detected (NotDetected)
== END 2021-12-18 20:26 | disposition home or self-care (01) ==
LOC: ERS 15:10
DX: R07.9 Chest pain, unspecified (principal); R06.02 Shortness of breath; R51.9 Headache, unspecified; R05.9 Cough, unspecified; R11.2 Nausea with vomiting, unspecified; R00.2 Palpitations; R63.0 Anorexia; M79.661 Pain in right lower leg; I48.91 Unspecified atrial fibrillation; I10 Essential (primary) hypertension; Z20.822 Contact with and (suspected) exposure to COVID-19; E11.9 Type 2 diabetes mellitus without complications; Z87.442 Personal history of urinary calculi; Z79.01 Long term (current) use of anticoagulants; Z86.16 Personal history of COVID-19; Z79.899 Other long term (current) drug therapy; Z86.718 Personal history of other venous thrombosis and embolism
CPT/HCPCS: 71275; 80053; 84484; 84703; 85025; 93005; 93970; U0003; U0005; 36415; 81003; 81015; 96374; 96375; J1200; J1885; J2550; J2765

== ENCOUNTER 2022-09-30 19:03 | Inpatient (IN) | payer OTHER, MEDICAID ==
[2022-09-30] MEDS ORDERED: Sodium Chloride 0.9% 1,000 ML IV SCH (20:15)
[2022-09-30] MEDS ORDERED: Pantoprazole 40 MG VIAL IVP SCH (21:00)
[2022-09-30] MEDS ORDERED: Enoxaparin Sodium 100 MG/ML SYRINGE SC SCH (21:30)
[2022-09-30] MEDS ORDERED: Dextrose 5% in Water 1,000 ML IV PRN (21:51)
[2022-09-30] MEDS ORDERED: Dextrose 50% Abboject 50 ML SYRINGE SLOW IVP PRN (21:51)
[2022-09-30 22:14] VITALS: BMI 32.4
[2022-09-30] MEDS ORDERED: Hydrocortisone Sod Succ/PF 100 mg/2 ml Vial IVP SCH (22:30)
[2022-09-30] MEDS: Sodium Chloride 0.9% 1,000 ML IV SCH (23:00)
[2022-09-30] MEDS: Promethazine HCl 25 MG/ML VIAL IM PRN (23:17)
[2022-10-01] MEDS: Morphine 4 MG/ML VIAL SLOW IVP PRN ×4 (01:19→20:10)
[2022-10-01] MEDS: Hydrocortisone Sod Succ/PF 100 mg/2 ml Vial IVP SCH ×4 (05:36→23:09)
[2022-10-01] MEDS: Sodium Chloride 0.9% 1,000 ML IV SCH ×3 (07:30→20:12)
[2022-10-01] MEDS ORDERED: FLU VACC QS2022-23(6MOS UP)/PF 60 MCG/0.5 ML SYRINGE IM ONE (09:00)
[2022-10-01] MEDS: Enoxaparin Sodium 100 MG/ML SYRINGE SC SCH ×2 (09:58→20:12)
[2022-10-01 10:17] LABS: #Basophils 0.1 thou/uL (0.0-0.2); #Lymphocytes 2.5 thou/uL (1.20-3.40); #Monocytes 0.6 thou/uL (0.11-0.59); #Neutrophils 9.6 thou/uL (1.40-6.50); %Basophils 0.5 % (0.0-1.0); %Eosinophils 0.1 % (0.0-10.0); %Lymphocytes 19.7 % (21.0-51.0); %Monocytes 4.8 % (0.0-10.0); %Neutrophils 74.8 % (42.0-75.0); Hemoglobin 11.4 g/dL (12.0-16.0); Mean Corpuscular HGB CONC 29.8 g/dL (32.0-36.0); Mean Corpuscular Hemoglobin 20.8 pg (27.0-31.0); Mean Corpuscular Volume 69.9 fl (78.0-98.0); Mean Platelet Volume 10.5 fL (7.4-10.4); Platelet Count 267 10x3/uL (130-400); RBC Distribution Width 20.4 % (11.5-14.5); Red Blood Cell (RBC) Count 5.46 mill/uL (4.20-5.40); White Blood Cell (WBC) Count 12.8 10x3/uL (4.8-10.8)
[2022-10-01 10:43] LABS: Anion Gap 16 mmol/L (10-20); BUN (Urea Nitrogen) 6 mg/dL (9.8-20.1); CK (CPK) 1994 U/L (29-168); Calc. Creatinine Clearance 124 mL/min (70-130); Calcium 9.1 mg/dL (7.8-10.44); Carbon Dioxide 22 mmol/L (22-29); Chloride 109 mmol/L (98-107); Estimated GFR 101; Glucose 110 mg/dL (70-105); Potassium 4.5 mmol/L (3.5-5.1); Sodium 142 mmol/L (136-145)
[2022-10-01 11:19] LABS: Anisocytosis MODERATE=16-30 cells (100X) (0-5/hpf); Hypochromia SLIGHT = 6-15 cells (100X) (0-5/hpf); MDiff Complete? YES; Microcytosis MODERATE=15-30 cells (100X) (0-5/hpf); Ovalocytes SLIGHT = 2-5 cells (100X) (0-1/hpf); Platelet Morphology Comment Appears Adequate; Polychromasia SLIGHT = 2-3 cells (100X) (0-2/hpf)
[2022-10-01] MEDS: Pantoprazole 40 MG VIAL IVP SCH (20:12)
[2022-10-01] MEDS: Promethazine HCl 25 MG/ML VIAL IM PRN (21:01)
[2022-10-01 21:43] LABS: Bacteria/HPF None Seen HPF (None Seen); Bilirubin Negative (Negative); Blood, Urine Negative (Negative); CAUTI Indications for Culture Pelvic or flank pain; Clarity Clear (Clear); Glucose, Urine (Dipstick) Normal (Negative); Ketone, Urine Negative (Negative); Leukocyte 25 Leu/uL (Negative); Nitrite Negative (Negative); Protein, Urine (Dipstick) Negative (Neg-Trace); RBC/HPF 0-3 HPF (0-3); Specific Gravity, Urine 1.004 (1.002-1.036); Squamous Epithelial 0-3 HPF (0-3); Urobilinogen Normal mg/dL (Less than 2); WBC/HPF 0-3 HPF (0-3)
[2022-10-01 21:48] LABS: Urine Culture Reflex No No
[2022-10-01] MEDS: traMADol HCl 50 MG TAB PO PRN (23:10)
[2022-10-01] MEDS: Melatonin 3 MG TAB PO PRN (23:10)
[2022-10-02] MEDS: Sodium Chloride 0.9% 1,000 ML IV SCH (02:00)
[2022-10-02] MEDS: Hydrocortisone Sod Succ/PF 100 mg/2 ml Vial IVP SCH ×2 (05:00→20:19)
[2022-10-02] MEDS: traMADol HCl 50 MG TAB PO PRN ×3 (05:01→20:19)
[2022-10-02] MEDS: Enoxaparin Sodium 100 MG/ML SYRINGE SC SCH ×2 (08:18→20:16)
[2022-10-02] MEDS: Pantoprazole 40 MG VIAL IVP SCH ×2 (08:19→20:21)
[2022-10-02 10:44] LABS: Hemoglobin 9.4 g/dL (12.0-16.0); Mean Corpuscular HGB CONC 30.3 g/dL (32.0-36.0); Mean Corpuscular Hemoglobin 21.2 pg (27.0-31.0); Mean Corpuscular Volume 69.9 fl (78.0-98.0); Mean Platelet Volume 8.8 fL (7.4-10.4); Platelet Count 226 10x3/uL (130-400); RBC Distribution Width 20.4 % (11.5-14.5); Red Blood Cell (RBC) Count 4.46 mill/uL (4.20-5.40)
[2022-10-02 10:48] LABS: #Lymphocytes 3.6 thou/uL (1.20-3.40); #Neutrophils 8.4 thou/uL (1.40-6.50); %Basophils 0.1 % (0.0-1.0); %Monocytes 7.4 % (0.0-10.0); %Neutrophils 64.4 % (42.0-75.0)
[2022-10-02 10:51] LABS: ALT (SGPT) 38 U/L (8-55); AST (SGOT) 36 U/L (5-34); Albumin 3.8 g/dL (3.5-5.0); Alkaline Phosphatase 54 U/L (40-110); Anion Gap 14 mmol/L (10-20); BUN (Urea Nitrogen) 4 mg/dL (9.8-20.1); Bilirubin, Total 0.4 mg/dL (0.2-1.2); CK (CPK) 813 U/L (29-168); Calc. Creatinine Clearance 135 mL/min (70-130); Calcium 8.8 mg/dL (7.8-10.44); Carbon Dioxide 23 mmol/L (22-29); Chloride 109 mmol/L (98-107); Estimated GFR 105; Globulin 2.8 g/dL (2.4-3.5); Glucose 99 mg/dL (70-105); Potassium 3.1 mmol/L (3.5-5.1); Protein, Total 6.6 g/dL (6.0-8.3); Sodium 143 mmol/L (136-145)
[2022-10-02] MEDS ORDERED: Potassium Chloride 20 MEQ TAB PO SCH (14:00)
[2022-10-02] MEDS: Promethazine HCl 25 MG/ML VIAL IM PRN (14:11)
[2022-10-02] MEDS: NS 0.9% w/ 20 MEQ KCL 1,000 ML/1,000 ML BAG IV SCH (14:12)
[2022-10-02] MEDS: Melatonin 3 MG TAB PO PRN (20:20)
[2022-10-03] MEDS: NS 0.9% w/ 20 MEQ KCL 1,000 ML/1,000 ML BAG IV SCH ×2 (00:27→03:20)
[2022-10-03] MEDS: traMADol HCl 50 MG TAB PO PRN (05:54)
[2022-10-03 06:03] LABS: #Lymphocytes 2.6 thou/uL (1.20-3.40); #Monocytes 0.4 thou/uL (0.11-0.59); #Neutrophils 4.9 thou/uL (1.40-6.50); %Eosinophils 0.2 % (0.0-10.0); %Lymphocytes 32.8 % (21.0-51.0); %Monocytes 4.8 % (0.0-10.0); %Neutrophils 62.1 % (42.0-75.0); Hemoglobin 9.1 g/dL (12.0-16.0); Mean Corpuscular HGB CONC 30.6 g/dL (32.0-36.0); Mean Corpuscular Hemoglobin 21.3 pg (27.0-31.0); Mean Corpuscular Volume 69.6 fl (78.0-98.0); Mean Platelet Volume 8.5 fL (7.4-10.4); Platelet Count 152 10x3/uL (130-400); RBC Distribution Width 20.3 % (11.5-14.5); Red Blood Cell (RBC) Count 4.28 mill/uL (4.20-5.40); White Blood Cell (WBC) Count 7.9 10x3/uL (4.8-10.8)
[2022-10-03 06:29] LABS: Anion Gap 14 mmol/L (10-20); BUN (Urea Nitrogen) Less than 4 mg/dL (9.8-20.1); Calc. Creatinine Clearance 135 mL/min (70-130); Calcium 8.7 mg/dL (7.8-10.44); Carbon Dioxide 24 mmol/L (22-29); Chloride 109 mmol/L (98-107); Estimated GFR 105; Glucose 103 mg/dL (70-105); Potassium 3.7 mmol/L (3.5-5.1); Sodium 143 mmol/L (136-145)
[2022-10-03] MEDS: Pantoprazole 40 MG VIAL IVP SCH (08:44)
[2022-10-03] MEDS: Enoxaparin Sodium 100 MG/ML SYRINGE SC SCH (08:45)
[2022-10-03 08:50] VITALS: BP 171/94; TEMP 99.5
[2022-10-03] MEDS ORDERED: Polyethylene Glycol 3350 17 GM Packet PO SCH (09:00)
[2022-10-03] MEDS: Hydrocortisone Sod Succ/PF 100 mg/2 ml Vial IVP SCH (09:44)
[2022-10-03] MEDS: Promethazine HCl 25 MG/ML VIAL IM PRN (09:45)
[2022-10-04] MEDS ORDERED: Hydrocortisone Sod Succ/PF 100 mg/2 ml Vial IVP SCH (09:00)
== END 2022-10-03 15:23 | disposition home or self-care (01) | DRG 394 ==
LOC: T4-A 19:43 → OBSVTOIN 10-01 16:20
PROVIDERS: ADMIT Internal Medicine; ATTEND Internal Medicine
DX: K52.1 Toxic gastroenteritis and colitis (principal); M62.82 Rhabdomyolysis; E11.9 Type 2 diabetes mellitus without complications; M32.9 Systemic lupus erythematosus, unspecified; M79.7 Fibromyalgia; K21.9 Gastro-esophageal reflux disease without esophagitis; G89.4 Chronic pain syndrome; T40.605A Adverse effect of unspecified narcotics, initial encounter; Z86.718 Personal history of other venous thrombosis and embolism; Z88.1 Allergy status to other antibiotic agents; Z88.2 Allergy status to sulfonamides; Z91.040 Latex allergy status; Z88.7 Allergy status to serum and vaccine; Z88.8 Allergy status to other drugs, medicaments and biological substances; Z79.890 Hormone replacement therapy; Z79.01 Long term (current) use of anticoagulants; Z79.84 Long term (current) use of oral hypoglycemic drugs; Z79.899 Other long term (current) drug therapy
CPT/HCPCS: 36415; 36416; 76705; 80048; 80053; 81001; 82550; 85025; 87324; 87449; C9113; J1650; J1720; J2270; J2550; J3480; J7050; U0003; U0005

== ENCOUNTER 2022-11-23 11:41 | Inpatient (IN) | payer OTHER, MEDICAID ==
[2022-11-23 12:13] LABS: #Basophils 0.1 thou/uL (0.0-0.2); #Eosinphils 0.1 thou/uL (0.0-0.7); #Monocytes 0.5 thou/uL (0.11-0.59); #Neutrophils 5.8 thou/uL (1.40-6.50); %Basophils 0.7 % (0.0-1.0); %Eosinophils 0.6 % (0.0-10.0); %Lymphocytes 31.8 % (21.0-51.0); %Monocytes 4.8 % (0.0-10.0); Hemoglobin 11.4 g/dL (12.0-16.0); Mean Corpuscular HGB CONC 30.6 g/dL (32.0-36.0); Mean Corpuscular Hemoglobin 20.2 pg (27.0-31.0); Mean Corpuscular Volume 65.9 fl (78.0-98.0); Platelet Count 270 10x3/uL (130-400); RBC Distribution Width 20.3 % (11.5-14.5); Red Blood Cell (RBC) Count 5.66 mill/uL (4.20-5.40); White Blood Cell (WBC) Count 9.4 10x3/uL (4.8-10.8)
[2022-11-23 12:30] LABS: ALT (SGPT) 22 U/L (8-55); AST (SGOT) 20 U/L (5-34); Albumin 4.4 g/dL (3.5-5.0); Alkaline Phosphatase 91 U/L (40-110); Anion Gap 15 mmol/L (10-20); BUN (Urea Nitrogen) 9 mg/dL (9.8-20.1); Bilirubin, Total 0.5 mg/dL (0.2-1.2); Calc. Creatinine Clearance 0 mL/min (70-130); Carbon Dioxide 23 mmol/L (22-29); Chloride 105 mmol/L (98-107); Estimated GFR 91; Glucose 118 mg/dL (70-105); Potassium 4.1 mmol/L (3.5-5.1); Protein, Total 8.4 g/dL (6.0-8.3); Sodium 139 mmol/L (136-145)
[2022-11-23] MEDS ORDERED: Lorazepam 1 MG TAB ONE (12:49)
[2022-11-23] MEDS ORDERED: Promethazine 25 MG TAB ONE (13:30)
[2022-11-23] MEDS ORDERED: Metoclopramide HCl 10 MG/2 ML VIAL ONE (14:18)
[2022-11-23] MEDS ORDERED: Ketorolac Tromethamine 30 MG/ML VIAL ONE (15:19)
[2022-11-23] MEDS ORDERED: Promethazine HCl 12.5 MG in Sodium Chloride 0.9% 50 ML IVPB SCH (15:45)
[2022-11-23] MEDS ORDERED: Iopamidol-370 76% 500 ML 1 ML ONE (15:56)
[2022-11-23 16:16] LABS: SARS-CoV-2 NAA Rapid Test Not Detected (NotDetected)
[2022-11-23 17:26] LABS: Bacteria/HPF 1+ HPF (None Seen); Bilirubin Negative (Negative); Blood, Urine Negative (Negative); Clarity Clear (Clear); Glucose, Urine (Dipstick) Normal (Negative); Ketone, Urine Negative (Negative); Leukocyte 500 Leu/uL (Negative); Nitrite Negative (Negative); Protein, Urine (Dipstick) Negative (Neg-Trace); RBC/HPF 0-3 HPF (0-3); Specific Gravity, Urine 1.009 (1.002-1.036); Urobilinogen Normal mg/dL (Less than 2); WBC/HPF 0-3 HPF (0-3)
[2022-11-23 17:28] LABS: Amphetamine Not Detected (NotDetected); Barbiturates Screen Not Detected (NotDetected); Benzodiazepine Screen Not Detected (NotDetected); Cocaine Metabolite Screen Not Detected (NotDetected); Methadone Not Detected (NotDetected); Methamphetamine Not Detected (NotDetected); Opiate Screen Detected (NotDetected); Oxycodone Screen Not Detected (NotDetected); Phencyclidine (PCP) Not Detected (NotDetected); THC/Cannabinoid Screen Not Detected (NotDetected); Tricyclic Screen Not Detected (NotDetected)
[2022-11-23 17:29] LABS: Pregnancy Test - Urine (BHCG) Negative (Negative); Pregu Control Background? CLEAR/WHITE (CLR/WHITE); Pregu Control Bar Appear? YES (CONTROL BAR); Specific Gravity 1.009 (1.002-1.036)
[2022-11-23] MEDS ORDERED: Promethazine HCl 12.5 MG in Sodium Chloride 0.9% 50 ML IVPB PRN ×2 (17:58→18:49)
[2022-11-23] MEDS ORDERED: Dextrose 5% in Water 1,000 ML IV PRN (18:36)
[2022-11-23] MEDS ORDERED: Insulin Regular 300 UNITS/3 ML VIAL SC PRN ×2 (18:36)
[2022-11-23] MEDS ORDERED: Dextrose 50% Abboject 50 ML SYRINGE SLOW IVP PRN (18:36)
[2022-11-23] MEDS ORDERED: Morphine 4 MG/ML VIAL SLOW IVP SCH (18:45)
[2022-11-23] MEDS ORDERED: Morphine 4 MG/ML VIAL SLOW IVP PRN (18:49)
[2022-11-23 18:59] LABS: CK (CPK) 49 U/L (29-168); Lipase 61 U/L (8-78); Magnesium 2.2 mg/dL (1.6-2.6); Phosphorus 4.3 mg/dL (2.3-4.7)
[2022-11-23 20:41] VITALS: BMI 33.1
[2022-11-23] MEDS: Ketorolac Tromethamine 30 MG/ML VIAL IVP PRN (20:42)
[2022-11-23] MEDS ORDERED: Pantoprazole 40 MG VIAL IVP SCH (21:00)
[2022-11-23] MEDS: Senokot S 8.6-50 MG TAB PO SCH (21:18)
[2022-11-23] MEDS: Metoclopramide HCl 10 MG/2 ML VIAL IVP SCH (21:21)
[2022-11-24] MEDS ORDERED: Promethazine HCl 12.5 MG in Sodium Chloride 0.9% 50 ML IVPB PRN (01:00)
[2022-11-24] MEDS: Ketorolac Tromethamine 30 MG/ML VIAL IVP PRN ×3 (02:39→14:23)
[2022-11-24] MEDS: Metoclopramide HCl 10 MG/2 ML VIAL IVP SCH ×2 (05:53→14:23)
[2022-11-24 07:20] LABS: Anion Gap 17 mmol/L (10-20); BUN (Urea Nitrogen) 13 mg/dL (9.8-20.1); Calc. Creatinine Clearance 105 mL/min (70-130); Calcium 9.7 mg/dL (7.8-10.44); Carbon Dioxide 20 mmol/L (22-29); Chloride 109 mmol/L (98-107); Estimated GFR 81; Glucose 134 mg/dL (70-105); Potassium 4.6 mmol/L (3.5-5.1); Sodium 141 mmol/L (136-145)
[2022-11-24 07:32] LABS: #Lymphocytes 2.4 thou/uL (1.20-3.40); #Monocytes 0.9 thou/uL (0.11-0.59); #Neutrophils 12.2 thou/uL (1.40-6.50); %Basophils 0.2 % (0.0-1.0); %Lymphocytes 15.2 % (21.0-51.0); %Monocytes 5.6 % (0.0-10.0); %Neutrophils 78.9 % (42.0-75.0); Anisocytosis SLIGHT = 6-15 cells (100X) (0-5/hpf); Hemoglobin 9.9 g/dL (12.0-16.0); Hypochromia SLIGHT = 6-15 cells (100X) (0-5/hpf); MDiff Complete? YES; Mean Corpuscular HGB CONC 30.6 g/dL (32.0-36.0); Mean Corpuscular Hemoglobin 20.1 pg (27.0-31.0); Mean Corpuscular Volume 65.7 fl (78.0-98.0); Mean Platelet Volume 8.6 fL (7.4-10.4); Microcytosis MODERATE=15-30 cells (100X) (0-5/hpf); Ovalocytes SLIGHT = 2-5 cells (100X) (0-1/hpf); Platelet Count 263 10x3/uL (130-400); Platelet Morphology Comment Appears Adequate; Polychromasia SLIGHT = 2-3 cells (100X) (0-2/hpf); Red Blood Cell (RBC) Count 4.94 mill/uL (4.20-5.40); Target Cells SLIGHT = 2-5 cells (100X) (0-1/hpf); Tear Drops SLIGHT = 2-5 cells (100X) (0-1/hpf); White Blood Cell (WBC) Count 15.4 10x3/uL (4.8-10.8)
[2022-11-24] MEDS: Pantoprazole 40 MG VIAL IVP SCH ×2 (08:18→20:25)
[2022-11-24] MEDS: Senokot S 8.6-50 MG TAB PO SCH ×2 (08:26→20:25)
[2022-11-24] MEDS ORDERED: Sodium Chloride 0.9% 1,000 ML IV SCH (08:30)
[2022-11-24] MEDS: Sodium Chloride 0.9% 1,000 ML IV SCH ×2 (10:02→20:25)
[2022-11-24] MEDS: Acetaminophen 325 MG TAB PO PRN ×3 (10:03→20:25)
[2022-11-24] MEDS: Morphine 2 MG/ML VIAL SLOW IVP PRN (22:30)
[2022-11-24] MEDS: Benzonatate 100 MG CAP PO PRN (23:47)
[2022-11-25] MEDS ORDERED: Promethazine HCl 12.5 MG in Sodium Chloride 0.9% 50 ML IVPB SCH (01:45)
[2022-11-25] MEDS: Morphine 2 MG/ML VIAL SLOW IVP PRN ×4 (02:20→20:44)
[2022-11-25] MEDS: Benzonatate 100 MG CAP PO PRN ×2 (05:44→20:56)
[2022-11-25] MEDS: Sodium Chloride 0.9% 1,000 ML IV SCH ×2 (05:46→20:57)
[2022-11-25 07:35] LABS: #Lymphocytes 0.9 thou/uL (1.20-3.40); #Neutrophils 9.7 thou/uL (1.40-6.50); %Basophils 0.2 % (0.0-1.0); %Eosinophils 0.4 % (0.0-10.0); %Lymphocytes 7.8 % (21.0-51.0); %Monocytes 8.6 % (0.0-10.0); Hemoglobin 10.2 g/dL (12.0-16.0); Mean Corpuscular HGB CONC 30.1 g/dL (32.0-36.0); Mean Corpuscular Hemoglobin 20.4 pg (27.0-31.0); Mean Corpuscular Volume 67.7 fl (78.0-98.0); Mean Platelet Volume 9.4 fL (7.4-10.4); Platelet Count 202 10x3/uL (130-400); RBC Distribution Width 20.9 % (11.5-14.5); Red Blood Cell (RBC) Count 5.02 mill/uL (4.20-5.40); White Blood Cell (WBC) Count 11.7 10x3/uL (4.8-10.8)
[2022-11-25 08:01] LABS: Hemoglobin A1c 6.3 % (4.0-6.0)
[2022-11-25 08:11] LABS: Anisocytosis SLIGHT = 6-15 cells (100X) (0-5/hpf); Hypochromia SLIGHT = 6-15 cells (100X) (0-5/hpf); MDiff Complete? YES; Microcytosis MODERATE=15-30 cells (100X) (0-5/hpf); Ovalocytes SLIGHT = 2-5 cells (100X) (0-1/hpf); Platelet Morphology Comment Appears Adequate; Polychromasia SLIGHT = 2-3 cells (100X) (0-2/hpf); Schistocytes SLIGHT = 2-5 cells (100X) (0-1/hpf); Target Cells SLIGHT = 2-5 cells (100X) (0-1/hpf); Tear Drops SLIGHT = 2-5 cells (100X) (0-1/hpf)
[2022-11-25 08:45] LABS: Chloride 110 mmol/L (98-107); Potassium 3.6 mmol/L (3.5-5.1); Sodium 142 mmol/L (136-145)
[2022-11-25 08:46] LABS: Calcium 8.9 mg/dL (7.8-10.44); Glucose 121 mg/dL (70-105)
[2022-11-25 08:47] LABS: Triglycerides 242 mg/dL (Less than 150)
[2022-11-25 08:48] LABS: Anion Gap 15 mmol/L (10-20); Carbon Dioxide 21 mmol/L (22-29)
[2022-11-25 08:50] LABS: Calc. Creatinine Clearance 117 mL/min (70-130); Estimated GFR 93
[2022-11-25 08:51] LABS: BUN (Urea Nitrogen) 12 mg/dL (9.8-20.1)
[2022-11-25 08:52] LABS: Cardiac Risk 7.8 (Less than 4.5); Cholesterol 281 mg/dl (< 200 Desired); HDL Cholesterol 36 mg/dL (>60 Neg Risk); LDL Cholesterol, Calculated 197 mg/dL
[2022-11-25] MEDS: Senokot S 8.6-50 MG TAB PO SCH ×2 (08:52→20:58)
[2022-11-25] MEDS: Pantoprazole 40 MG VIAL IVP SCH ×2 (08:54→20:43)
[2022-11-25] MEDS ORDERED: PROPOFOL 200 MG/20 ML VIAL ONE (13:26)
[2022-11-25] MEDS ORDERED: Promethazine HCl 25 MG/ML VIAL ONE (13:43)
[2022-11-25] MEDS: Promethazine 25 MG TAB PO PRN ×2 (15:01→20:45)
[2022-11-25] MEDS: HYDROcodone/Acetaminophen 5/325 mg Tablet PO PRN (17:36)
[2022-11-25] MEDS: Sucralfate 1 GM/10 ML UDCUP PO SCH ×2 (17:51→20:45)
[2022-11-25] MEDS: Metoprolol Tartrate 25 MG TAB PO SCH (20:47)
[2022-11-25] MEDS: Acetaminophen 325 MG TAB PO PRN (20:47)
[2022-11-25] MEDS ORDERED: Apixaban 5 MG TAB PO SCH (21:00)
[2022-11-26] MEDS: Promethazine 25 MG TAB PO PRN ×4 (01:08→20:14)
[2022-11-26] MEDS: HYDROcodone/Acetaminophen 5/325 mg Tablet PO PRN ×3 (01:08→17:29)
[2022-11-26 06:30] LABS: Anion Gap 10 mmol/L (10-20); BUN (Urea Nitrogen) 8 mg/dL (9.8-20.1); Calc. Creatinine Clearance 125 mL/min (70-130); Calcium 8.4 mg/dL (7.8-10.44); Carbon Dioxide 23 mmol/L (22-29); Chloride 110 mmol/L (98-107); Estimated GFR 101; Glucose 134 mg/dL (70-105); Potassium 3.7 mmol/L (3.5-5.1); Sodium 139 mmol/L (136-145)
[2022-11-26 06:33] LABS: #Monocytes 0.9 thou/uL (0.11-0.59); #Neutrophils 6.3 thou/uL (1.40-6.50); %Basophils 0.3 % (0.0-1.0); %Eosinophils 0.2 % (0.0-10.0); %Monocytes 9.3 % (0.0-10.0); %Neutrophils 68.2 % (42.0-75.0); Hemoglobin 8.1 g/dL (12.0-16.0); Hypochromia SLIGHT = 6-15 cells (100X) (0-5/hpf); MDiff Complete? YES; Mean Corpuscular HGB CONC 30.6 g/dL (32.0-36.0); Mean Corpuscular Hemoglobin 20.5 pg (27.0-31.0); Mean Corpuscular Volume 66.8 fl (78.0-98.0); Mean Platelet Volume 7.7 fL (7.4-10.4); Microcytosis SLIGHT = 6-15 cells (100X) (0-5/hpf); Platelet Count 181 10x3/uL (130-400); RBC Distribution Width 19.7 % (11.5-14.5); Red Blood Cell (RBC) Count 3.98 mill/uL (4.20-5.40); White Blood Cell (WBC) Count 9.2 10x3/uL (4.8-10.8)
[2022-11-26] MEDS: Senokot S 8.6-50 MG TAB PO SCH ×2 (08:14→20:12)
[2022-11-26] MEDS: Metoprolol Tartrate 25 MG TAB PO SCH ×2 (08:14→20:11)
[2022-11-26] MEDS: Sucralfate 1 GM/10 ML UDCUP PO SCH ×4 (08:14→20:10)
[2022-11-26] MEDS: Pantoprazole 40 MG VIAL IVP SCH ×2 (08:15→20:11)
[2022-11-26] MEDS: Morphine 2 MG/ML VIAL SLOW IVP PRN ×3 (08:22→22:02)
[2022-11-26] MEDS: Benzonatate 100 MG CAP PO PRN ×2 (08:22→20:11)
[2022-11-26] MEDS: Sodium Chloride 0.9% 1,000 ML IV SCH (12:54)
[2022-11-27] MEDS: Promethazine 25 MG TAB PO PRN ×2 (01:10→05:48)
[2022-11-27] MEDS: HYDROcodone/Acetaminophen 5/325 mg Tablet PO PRN ×2 (01:10→08:24)
[2022-11-27] MEDS: Morphine 2 MG/ML VIAL SLOW IVP PRN (05:48)
[2022-11-27] MEDS: Benzonatate 100 MG CAP PO PRN (05:48)
[2022-11-27 07:07] LABS: #Eosinphils 0.1 thou/uL (0.0-0.7); #Lymphocytes 2.7 thou/uL (1.20-3.40); #Monocytes 0.7 thou/uL (0.11-0.59); #Neutrophils 3.6 thou/uL (1.40-6.50); %Basophils 0.4 % (0.0-1.0); %Eosinophils 1.5 % (0.0-10.0); %Lymphocytes 37.5 % (21.0-51.0); %Monocytes 9.3 % (0.0-10.0); %Neutrophils 51.3 % (42.0-75.0); Hemoglobin 9.1 g/dL (12.0-16.0); Mean Corpuscular HGB CONC 31.4 g/dL (32.0-36.0); Mean Corpuscular Hemoglobin 21.1 pg (27.0-31.0); Mean Corpuscular Volume 67.3 fl (78.0-98.0); Platelet Count 223 10x3/uL (130-400); White Blood Cell (WBC) Count 7.1 10x3/uL (4.8-10.8)
[2022-11-27 07:16] LABS: Anion Gap 12 mmol/L (10-20); BUN (Urea Nitrogen) 7 mg/dL (9.8-20.1); Calc. Creatinine Clearance 116 mL/min (70-130); Calcium 8.6 mg/dL (7.8-10.44); Carbon Dioxide 24 mmol/L (22-29); Chloride 108 mmol/L (98-107); Estimated GFR 91; Glucose 144 mg/dL (70-105); Potassium 3.5 mmol/L (3.5-5.1); Sodium 140 mmol/L (136-145)
[2022-11-27 07:53] LABS: Hypochromia SLIGHT = 6-15 cells (100X) (0-5/hpf); MDiff Complete? YES; Microcytosis MODERATE=15-30 cells (100X) (0-5/hpf); Platelet Morphology Comment Appears Adequate; Polychromasia SLIGHT = 2-3 cells (100X) (0-2/hpf)
[2022-11-27] MEDS: Senokot S 8.6-50 MG TAB PO SCH (08:24)
[2022-11-27] MEDS: Metoprolol Tartrate 25 MG TAB PO SCH (08:24)
[2022-11-27] MEDS: Pantoprazole 40 MG VIAL IVP SCH (08:25)
[2022-11-27] MEDS: Sucralfate 1 GM/10 ML UDCUP PO SCH (08:25)
[2022-11-27] MEDS ORDERED: Apixaban 5 MG TAB PO SCH (09:30)
[2022-11-27 10:37] VITALS: BP 124/86; TEMP 98.6
== END 2022-11-27 11:16 | disposition home or self-care (01) | DRG 392 ==
LOC: ERS 11:41 → T4-B 17:49 → OBSVTOIN 11-25 12:58
PROVIDERS: ADMIT Internal Medicine; ATTEND Internal Medicine
PROC: 0DJ08ZZ Inspection of Upper Intestinal Tract, Via Natural or Artificial Opening Endoscopic (ICD-10-PCS; principal; 2022-11-25)
DX: R11.2 Nausea with vomiting, unspecified (principal); T43.225A Adverse effect of selective serotonin reuptake inhibitors, initial encounter; Z20.822 Contact with and (suspected) exposure to COVID-19; M32.9 Systemic lupus erythematosus, unspecified; I10 Essential (primary) hypertension; E11.9 Type 2 diabetes mellitus without complications; R10.13 Epigastric pain; E78.5 Hyperlipidemia, unspecified; G89.4 Chronic pain syndrome; E66.9 Obesity, unspecified; D53.9 Nutritional anemia, unspecified; D72.829 Elevated white blood cell count, unspecified; Z98.84 Bariatric surgery status; Z86.718 Personal history of other venous thrombosis and embolism; Z86.711 Personal history of pulmonary embolism; Z87.11 Personal history of peptic ulcer disease; Z68.32 Body mass index [BMI] 32.0-32.9, adult; Z88.2 Allergy status to sulfonamides; Z88.7 Allergy status to serum and vaccine; Z88.8 Allergy status to other drugs, medicaments and biological substances; Z88.3 Allergy status to other anti-infective agents; Z91.040 Latex allergy status; Z98.890 Other specified postprocedural states
CPT/HCPCS: 36415; 36416; 71045; 71275; 74176; 80048; 80053; 80061; 80306; 81003; 81015; 81025; 82550; 83036; 83690; 83735; 84100; 84484; 85025; 93005; 94760; 96365; 96375; 96376; C9113; G0378; J1885; J2270; J2272; J2550; J2704; J2765; J7050; Q0169; Q9967

== ENCOUNTER 2023-06-04 00:04 | Observation (INO) | payer OTHER, MEDICAID ==
[2023-06-04 01:27] LABS: #Eosinphils 0.4 thou/uL (0.0-0.7); #Monocytes 0.8 thou/uL (0.11-0.59); %Basophils 0.5 % (0.0-1.0); %Eosinophils 4.1 % (0.0-10.0); %Lymphocytes 40.7 % (21.0-51.0); %Monocytes 8.9 % (0.0-10.0); %Neutrophils 45.6 % (42.0-75.0); Hemoglobin 10.1 g/dL (12.0-16.0); Mean Corpuscular HGB CONC 28.4 g/dL (32.0-36.0); Mean Corpuscular Hemoglobin 18.9 pg (27.0-31.0); Platelet Count 269 10x3/uL (130-400); RBC Distribution Width 21.2 % (11.5-14.5); Red Blood Cell (RBC) Count 5.34 mill/uL (4.20-5.40); White Blood Cell (WBC) Count 8.8 10x3/uL (4.8-10.8)
[2023-06-04 01:29] LABS: Mean Corpuscular Volume 66.7 fl (78.0-98.0)
[2023-06-04] MEDS ORDERED: Triple Antibiotic Oint 1 GM Packet ONE (01:47)
[2023-06-04 01:48] LABS: ALT (SGPT) 16 U/L (8-55); AST (SGOT) 19 U/L (5-34); Alkaline Phosphatase 73 U/L (40-110); Anion Gap 13 mmol/L (10-20); BUN (Urea Nitrogen) 8 mg/dL (9.8-20.1); Bilirubin, Total 0.4 mg/dL (0.2-1.2); Calc. Creatinine Clearance 0 mL/min (70-130); Calcium 9.6 mg/dL (7.8-10.44); Carbon Dioxide 25 mmol/L (22-29); Chloride 104 mmol/L (98-107); Estimated GFR 77; Globulin 3.5 g/dL (2.4-3.5); Glucose 94 mg/dL (70-105); Potassium 3.5 mmol/L (3.5-5.1); Protein, Total 7.5 g/dL (6.0-8.3); Sodium 138 mmol/L (136-145)
[2023-06-04] MEDS ORDERED: Acetaminophen 325 MG TAB PO PRN (02:32)
[2023-06-04] MEDS ORDERED: HYDROcodone/Acetaminophen 5/325 mg Tablet PO PRN (02:32)
[2023-06-04] MEDS ORDERED: Sodium Chloride 0.9% 1,000 ML IV SCH (03:45)
[2023-06-04 03:57] LABS: #Eosinphils 0.3 thou/uL (0.0-0.7); #Monocytes 0.7 thou/uL (0.11-0.59); #Neutrophils 4.6 thou/uL (1.40-6.50); %Basophils 0.3 % (0.0-1.0); %Eosinophils 3.6 % (0.0-10.0); %Lymphocytes 34.6 % (21.0-51.0); %Monocytes 7.7 % (0.0-10.0); %Neutrophils 53.6 % (42.0-75.0); Hemoglobin 10.7 g/dL (12.0-16.0); Mean Corpuscular HGB CONC 28.8 g/dL (32.0-36.0); Mean Corpuscular Hemoglobin 19.1 pg (27.0-31.0); Mean Corpuscular Volume 66.5 fl (78.0-98.0); Platelet Count 288 10x3/uL (130-400); RBC Distribution Width 21.6 % (11.5-14.5); Red Blood Cell (RBC) Count 5.59 mill/uL (4.20-5.40); White Blood Cell (WBC) Count 8.6 10x3/uL (4.8-10.8)
[2023-06-04] MEDS ORDERED: Methyl Salicylate/Menthol 85 GM TUBE TOP PRN (04:15)
[2023-06-04 04:20] LABS: Anion Gap 11 mmol/L (10-20); BUN (Urea Nitrogen) 9 mg/dL (9.8-20.1); Calc. Creatinine Clearance 0 mL/min (70-130); Calcium 9.6 mg/dL (7.8-10.44); Carbon Dioxide 25 mmol/L (22-29); Chloride 104 mmol/L (98-107); Estimated GFR 87; Glucose 96 mg/dL (70-105); Iron 31 ug/dL (50-170); Iron Binding Capacity, Total 514 mcg/dL (265-497); Magnesium 2.1 mg/dL (1.6-2.6); Potassium 3.7 mmol/L (3.5-5.1); Sodium 136 mmol/L (136-145)
[2023-06-04 04:45] LABS: Ferritin 11.02 ng/mL (10-291); Thyroid Stimulating Hormone 1.2304 uIU/mL (0.35-4.94)
[2023-06-04] MEDS ORDERED: HYDROcodone/Acetaminophen 5/325 mg Tablet ONE (05:00)
[2023-06-04 05:41] VITALS: BMI 34.3
[2023-06-04 06:33] VITALS: BP 141/95; TEMP 98.2
[2023-06-04] MEDS ORDERED: Famotidine 20 MG TAB PO SCH (09:00)
[2023-06-04] MEDS ORDERED: Polyethylene Glycol 3350 17 GM Packet PO PRN (09:12)
[2023-06-04] MEDS ORDERED: Iron Sucrose Complex 100 MG in Sodium Chloride 0.9% 100 ML IVPB SCH (09:15)
[2023-06-04] MEDS ORDERED: Hydrocodone-Acetamin 15 ML UDCUP PO PRN (09:21)
[2023-06-04] MEDS ORDERED: Iron, Sodium Ferric Gluconate 125 MG in Sodium Chloride 0.9% 100 ML IVPB SCH (09:30)
[2023-06-04] MEDS ORDERED: Pantoprazole 40 MG VIAL IVP SCH (09:30)
[2023-06-04] MEDS ORDERED: Pantoprazole 40 MG VIAL ONE (09:44)
[2023-06-04] MEDS ORDERED: Rosuvastatin 20 MG TAB PO SCH (21:00)
[2023-06-04] MEDS ORDERED: Apixaban 5 MG TAB PO SCH (21:00)
[2023-06-05] MEDS ORDERED: Levothyroxine Sodium 25 MCG TAB PO SCH (06:00)
[2023-06-05] MEDS ORDERED: Ferrous Sulfate 325 MG TAB PO SCH (08:00)
== END 2023-06-04 13:03 | disposition left against medical advice (07) ==
LOC: ERS 00:04 → ERHOLD 02:16
PROVIDERS: ADMIT Internal Medicine; ATTEND Internal Medicine
DX: R55 Syncope and collapse (principal); D64.9 Anemia, unspecified; E11.9 Type 2 diabetes mellitus without complications; E03.9 Hypothyroidism, unspecified; I10 Essential (primary) hypertension; M32.9 Systemic lupus erythematosus, unspecified; M25.571 Pain in right ankle and joints of right foot; G89.29 Other chronic pain; Z86.718 Personal history of other venous thrombosis and embolism; Z86.711 Personal history of pulmonary embolism; Z88.1 Allergy status to other antibiotic agents; Z88.2 Allergy status to sulfonamides; Z88.8 Allergy status to other drugs, medicaments and biological substances; Z91.040 Latex allergy status; Z98.84 Bariatric surgery status; Z79.01 Long term (current) use of anticoagulants
CPT/HCPCS: 70450; 71045; 73630; 80048; 82607; 82728; 83540; 83550; 83735; 83880; 84484; 93005; 93880; 99285; G0378; 36415; 80053; 84443; 85025; C9113; J2916; J3490; J7050

== ENCOUNTER 2023-07-03 16:30 | Outpatient (CLI) | payer OTHER | END 2023-07-03 16:31 | disposition home or self-care (01) | LOC: RAD 16:30 | PROVIDERS: ATTEND Internal Medicine | DX: K59.03 Drug induced constipation (principal); R19.5 Other fecal abnormalities | CPT/HCPCS: 74018 ==

== ENCOUNTER 2023-09-02 12:02 | Day surgery (SDC) | payer OTHER, MEDICAID ==
[2023-09-02] MEDS ORDERED: PROPOFOL 20 ML ONE (13:19)
[2023-09-02] MEDS ORDERED: Lidocaine 1% PF 5 ML VIAL ONE (13:30)
[2023-09-02] MEDS ORDERED: ePHEDrine 50 MG/ML VIAL ONE (13:30)
== END 2023-09-02 15:25 | disposition home or self-care (01) ==
LOC: MRI 12:02 → EDSTATUS 13:00 → MRI 15:25
PROVIDERS: ATTEND Physical Medicine & Rehabilitation
DX: M54.2 Cervicalgia (principal); I10 Essential (primary) hypertension; E11.9 Type 2 diabetes mellitus without complications; G47.30 Sleep apnea, unspecified; Z88.2 Allergy status to sulfonamides; Z88.1 Allergy status to other antibiotic agents; Z88.8 Allergy status to other drugs, medicaments and biological substances; Z91.040 Latex allergy status; Z86.718 Personal history of other venous thrombosis and embolism; Z90.710 Acquired absence of both cervix and uterus; Z79.899 Other long term (current) drug therapy; Z90.49 Acquired absence of other specified parts of digestive tract
CPT/HCPCS: 72141; J2704; J3490